=== PATIENT | female | born 1985 | race Caucasian/White ===

== ENCOUNTER → 2016-08-15 | Outpatient (REF) | payer OTHER, MEDICAID ==
[2016-08-15 12:28] LABS: FREE T4 1.05 NG/DL (0.76-1.46)
== END ==
LOC: M SFHCCLAY 08:38
PROVIDERS: ATTEND Family Medicine
DX: E03.9 Hypothyroidism, unspecified (principal)

== ENCOUNTER → 2017-01-01 | Outpatient (REF) | payer OTHER, MEDICAID ==
[2017-01-01 18:00] LABS: ALBUMIN 3.9 GM/DL (3.2-5.2); ALBUMIN/GLOBULIN RATIO 1.18 (1.00-1.93); ALKALINE PHOSPHATASE 58 U/L (45-117); ALT/SGPT 23 U/L (12-78); ANION GAP 9 MEQ/L (8-16); AST/SGOT 18 U/L (15-37); BILIRUBIN,TOTAL 0.5 MG/DL (0.2-1.0); BLOOD UREA NITROGEN 6 MG/DL (7-18); CALCIUM LEVEL 8.8 MG/DL (8.5-10.1); CARBON DIOXIDE LEVEL 25 MEQ/L (21-32); CHLORIDE LEVEL 107 MEQ/L (98-107); CHOLESTEROL LEVEL 135 MG/DL (<200); CREATININE FOR GFR 0.62 MG/DL (0.55-1.02); FREE T4 1.07 NG/DL (0.76-1.46); GLOMERULAR FILTRATION RATE > 60.0 (>60); GLUCOSE, FASTING 86 MG/DL (70-105); POTASSIUM SERUM 4.3 MEQ/L (3.5-5.1); SODIUM LEVEL 141 MEQ/L (136-145); TOTAL PROTEIN 7.2 GM/DL (6.4-8.2); TRIGLYCERIDES LEVEL 68 MG/DL (<150)
== END ==
LOC: M SFHCCLAY 10:07
PROVIDERS: ATTEND Family Medicine
DX: Z00.00 Encounter for general adult medical examination without abnormal findings (principal); E03.9 Hypothyroidism, unspecified

== ENCOUNTER → 2017-03-04 | Outpatient (REF) | payer OTHER, MEDICAID | LOC: M SFHCCLAY 10:14 | PROVIDERS: ATTEND Family Medicine | DX: Z01.419 Encounter for gynecological examination (general) (routine) without abnormal findings (principal) ==

== ENCOUNTER → 2017-08-20 | Outpatient (REF) | payer OTHER ==
[2017-08-21 12:13] LABS: HEPATITIS B SURFACE ANTIBODY POSITIVE (POSITIVE)
[2017-08-21 12:23] LABS: HEPATITIS B SURFACE ANTIGEN NEGATIVE (NEGATIVE)
[2017-08-21 12:51] LABS: HEPATITIS C VIRUS ABY INDEX < 0.0 INDEX (<0.8)
[2017-08-21 12:52] LABS: HIV 1&2 SCREEN CENTAUR NEGATIVE (NEGATIVE)
[2017-08-21 13:10] LABS: CHLAMYDIA DNA AMPLIFICATION NEGATIVE (NEGATIVE); GC DNA AMPLIFICATION NEGATIVE (NEGATIVE)
== END ==
LOC: M SFHCCLAY 15:19
DX: Z11.9 Encounter for screening for infectious and parasitic diseases, unspecified (principal)

== ENCOUNTER → 2017-10-09 | Outpatient (REF) | payer OTHER ==
[2017-10-09 12:00] LABS: APPEARANCE, URINE CLEAR (CLEAR); BACTERIA, URINE AUTO NEGATIVE (NEGATIVE); BILIRUBIN, URINE AUTO NEGATIVE (NEGATIVE); BLOOD, URINE BLOOD NEGATIVE (NEGATIVE); COLOR, URINE YELLOW (YELLOW); GLUCOSE, URINE (UA) AUTO NEGATIVE (NEGATIVE); KETONE, URINE AUTO NEGATIVE (NEGATIVE); LEUKOCYTE ESTERASE, URINE AUTO NEGATIVE (NEGATIVE); NITRITE, URINE AUTO NEGATIVE (NEGATIVE); PROTEIN, URINE AUTO NEGATIVE (NEGATIVE); RBC, URINE AUTO 0 /HPF (0-3); SQUAMOUS EPITHELIAL CELL UR AU 0 /HPF (0-6); UROBILINOGEN, URINE AUTO 0.2 mg/dL (0.0-2.0); WBC, URINE AUTO 0 /HPF (0-3)
[2017-10-09 12:03] LABS: HEPATITIS B SURFACE ANTIBODY POSITIVE (POSITIVE)
[2017-10-09 12:13] LABS: HEPATITIS B SURFACE ANTIGEN NEGATIVE (NEGATIVE)
[2017-10-09 12:41] LABS: HEPATITIS C VIRUS ABY INDEX 0.1 INDEX (<0.8)
[2017-10-09 12:41] LABS: HIV 1&2 SCREEN CENTAUR NEGATIVE (NEGATIVE)
[2017-10-09 13:28] LABS: CHLAMYDIA DNA AMPLIFICATION NEGATIVE (NEGATIVE); GC DNA AMPLIFICATION NEGATIVE (NEGATIVE)
== END ==
LOC: M SFHCCLAY 07:40
DX: Z11.9 Encounter for screening for infectious and parasitic diseases, unspecified (principal)

== ENCOUNTER → 2017-10-10 | Outpatient (REF) | payer OTHER | LOC: M SFHCCLAY 12:51 | DX: Z11.9 Encounter for screening for infectious and parasitic diseases, unspecified (principal) ==

== ENCOUNTER → 2018-11-26 | Outpatient (REF) | payer OTHER | LOC: M LAB REF 13:37 | PROVIDERS: ATTEND Nurse Practitioner Adult Health | DX: R19.7 Diarrhea, unspecified (principal) ==

== ENCOUNTER 2019-11-02 13:08 | Emergency (ER) | payer OTHER ==
[~2019-11-02] VITALS: Ht 160 cm; Wt 59.1 kg
[2019-11-02] MEDS ORDERED: vitamin d (13:15)
[2019-11-02] MEDS ORDERED: LEVO125T4 (13:15)
[2019-11-02] MEDS ORDERED: otc iron (13:15)
[2019-11-02] MEDS ORDERED: methylPREDNISolone 125MG 2ML VIAL IM ONE (13:30)
[2019-11-02] MEDS ORDERED: LIDOCAINE 5% (LIDODERM) PATCH TD ONE (13:30)
[2019-11-02] MEDS ORDERED: KETOROLAC 60MG 2ML VIAL IM ONE (13:30)
[2019-11-02] MEDS ORDERED: CYCL-707 PO (15:29)
[2019-11-02] MEDS ORDERED: LIDO5DIS41 TOP (15:29)
[2019-11-02 15:40] VITALS: BP 119/72
[2019-11-03] MEDS ORDERED: **NOTE PATIENT COMMENT** MISC XX ONE (01:00)
== END 2019-11-02 15:57 | disposition home or self-care (01) ==
LOC: M ED 13:08
DX: S39.92XA Unspecified injury of lower back, initial encounter (principal); X50.9XXA Other and unspecified overexertion or strenuous movements or postures, initial encounter; Y92.89 Other specified places as the place of occurrence of the external cause; Y99.0 Civilian activity done for income or pay; E03.9 Hypothyroidism, unspecified; Z79.890 Hormone replacement therapy; F17.210 Nicotine dependence, cigarettes, uncomplicated
CPT/HCPCS: 96372; 99283; J1885; J2930

== ENCOUNTER → 2020-06-03 | Outpatient (CLI) | payer OTHER ==
[~2020-06-03] MED LIST: CYCL-707 PO; LEVO125T4; LIDO5DIS41 TOP; otc iron; vitamin d
[2020-06-03 13:20] LABS: HEMATOCRIT 43.1 % (36.0-47.0); MEAN CORPUSCULAR HEMOGLOBIN 30.5 pg (27.0-33.0); MEAN CORPUSCULAR HGB CONC 32.5 g/dl (32.0-36.5); MEAN CORPUSCULAR VOLUME 93.9 fl (80.0-96.0); PLATELET COUNT, AUTOMATED 348 10^3/uL (150-450); RED BLOOD COUNT 4.59 10^6/uL (4.00-5.40); WHITE BLOOD COUNT 8.6 10^3/uL (4.0-10.0)
[2020-06-03 14:06] LABS: ERYTHROCYTE SEDIMENTATION RATE 9 mm/hr (0-20)
== END ==
LOC: M LAB 12:00
PROVIDERS: ATTEND Internal Medicine Gastroenterology
DX: K52.89 Other specified noninfective gastroenteritis and colitis (principal); R10.13 Epigastric pain; R11.0 Nausea; R19.5 Other fecal abnormalities

== ENCOUNTER → 2020-11-02 | Outpatient (CLI) | payer OTHER ==
[2020-11-02 19:25] LABS: BASO % 0.3 % (0.0-1.0); EOS # 0.2 10^3/uL (0.0-0.5); EOS % 1.7 % (0.0-3.0); HEMATOCRIT 39.2 % (36.0-47.0); HEMOGLOBIN 13.2 g/dl (12.0-15.5); LYMPH # 3.3 10^3/uL (1.5-5.0); LYMPH % 38.5 % (24.0-44.0); MEAN CORPUSCULAR HGB CONC 33.7 g/dl (32.0-36.5); MONO # 0.8 10^3/uL (0.0-0.8); MONO % 8.7 % (2.0-8.0); NEUTROPHILS # 4.4 10^3/uL (1.5-8.5); NEUTROPHILS % 50.5 % (36.0-66.0); PLATELET COUNT, AUTOMATED 306 10^3/uL (150-450); RED BLOOD COUNT 4.26 10^6/uL (4.00-5.40); WHITE BLOOD COUNT 8.7 10^3/uL (4.0-10.0)
[2020-11-02 19:47] LABS: BLOOD UREA NITROGEN 8 MG/DL (7-18); CALCIUM LEVEL 9.1 MG/DL (8.5-10.1); CARBON DIOXIDE LEVEL 30 MEQ/L (21-32); CHLORIDE LEVEL 107 MEQ/L (98-107); CREATININE FOR GFR 0.88 MG/DL (0.55-1.30); GLOMERULAR FILTRATION RATE > 60.0 (>60); GLUCOSE, FASTING 76 MG/DL (70-100); SODIUM LEVEL 140 MEQ/L (136-145)
[2020-11-02 19:48] LABS: ALBUMIN 4.2 GM/DL (3.2-5.2); ALT/SGPT 43 U/L (12-78); BILIRUBIN,TOTAL 0.2 MG/DL (0.2-1.0); FREE T4 0.93 NG/DL (0.76-1.46); MAGNESIUM LEVEL 2.3 MG/DL (1.8-2.4); TOTAL PROTEIN 7.8 GM/DL (6.4-8.2)
== END ==
LOC: M LAB 18:33
PROVIDERS: ATTEND Nurse Practitioner Family
DX: R00.2 Palpitations (principal); E03.9 Hypothyroidism, unspecified; E55.9 Vitamin D deficiency, unspecified; N94.6 Dysmenorrhea, unspecified

== ENCOUNTER → 2020-12-16 | Outpatient (REF) | LOC: M EMP 09:22 | PROVIDERS: ATTEND Family Medicine | DX: Z20.822 Contact with and (suspected) exposure to COVID-19 (principal) ==

== ENCOUNTER 2021-01-28 13:09 | Emergency (ER) | payer BC, OTHER ==
[~2021-01-28] VITALS: Ht 162.6 cm; Wt 63.9 kg
[2021-01-28 13:09] VITALS: BP 126/73
--- OUTSIDE RECORDS SUMMARY | 2021-01-28 13:16 | CCD ---
Author Author [facility] Organization [facility] Address Unknown Phone Unavailable Care Team Providers Care Electroneurodiagnostic Technologist Name Role Phone [place], L Bambi COTTON CLASSER Unavailable Unavailable Dylan, L Bambi COTTON CLASSER Unavailable Unavailable Dylan, L Bambi COTTON CLASSER Unavailable Unavailable Dylan, L Bambi COTTON CLASSER Unavailable Unavailable [place], L Bambi COTTON CLASSER Unavailable Unavailable [place], L Bambi COTTON CLASSER Unavailable Unavailable [place], L Bambi COTTON CLASSER Unavailable Unavailable Dylan, L Bambi COTTON CLASSER Unavailable Unavailable [place], L Bambi COTTON CLASSER Unavailable Unavailable Dylan, L Bambi COTTON CLASSER Unavailable Unavailable Dylan, L Bambi COTTON CLASSER Unavailable Unavailable Dylan, L Bambi COTTON CLASSER Unavailable Unavailable Dylan, L Bambi COTTON CLASSER Unavailable Unavailable Dylan, L Bambi COTTON CLASSER Unavailable Unavailable [place], L Bambi COTTON CLASSER Unavailable Unavailable [place], L Bambi COTTON CLASSER Unavailable Unavailable Dylan, L Bambi COTTON CLASSER Unavailable Unavailable [place], L Bambi COTTON CLASSER Unavailable Unavailable [place], L Bambi COTTON CLASSER Unavailable Unavailable Dylan, L Bambi COTTON CLASSER Unavailable Unavailable [place], L Bambi COTTON CLASSER Unavailable Unavailable Dylan, L Bambi COTTON CLASSER Unavailable Unavailable Dylan, L Bambi COTTON CLASSER Unavailable Unavailable Dylan, L Bambi COTTON CLASSER Unavailable Unavailable [place], L Bambi COTTON CLASSER Unavailable Unavailable Dylan, L Bambi COTTON CLASSER Unavailable Unavailable [place], L Bambi COTTON CLASSER Unavailable Unavailable Dylan, L Bambi COTTON CLASSER Unavailable Unavailable [place], L Bambi COTTON CLASSER Unavailable Unavailable [place], L Bambi COTTON CLASSER Unavailable Unavailable Dylan, L Bambi COTTON CLASSER Unavailable Unavailable [place], L Bambi COTTON CLASSER Unavailable Unavailable [place], L Bambi COTTON CLASSER Unavailable Unavailable [place], L Bambi COTTON CLASSER Unavailable Unavailable Dylan, L Bambi COTTON CLASSER Unavailable Unavailable [place], L Bambi COTTON CLASSER Unavailable Unavailable Dylan, L Bambi COTTON CLASSER Unavailable Unavailable [place], L Bambi COTTON CLASSER Unavailable Unavailable Dylan, L Bambi COTTON CLASSER Unavailable Unavailable Gaetano CALHOUN MD Unavailable Unavailable Gaetano CALHOUN MD Unavailable Unavailable Gaetano CALHOUN MD Unavailable Unavailable Gaetano CALHOUN MD Unavailable Unavailable Gaetano CALHOUN MD Unavailable Unavailable Gaetano CALHOUN MD Unavailable Unavailable Gaetano CALHOUN MD Unavailable Unavailable Gaetano CALHOUN MD Unavailable Unavailable ADE F DARRELL SUNG Unavailable Unavailable Gaetano CALHOUN MD Unavailable Unavailable Gaetano CALHOUN MD Unavailable Unavailable Gaetano CALHOUN MD Unavailable Unavailable Gaetano CALHOUN MD Unavailable Unavailable ADE F DARRELL SUNG Unavailable Unavailable ADE F DARRELL SUNG Unavailable Unavailable ADE F DARRELL SUNG Unavailable Unavailable ADE F DARRELL SUNG Unavailable Unavailable ADE F DARRELL SUNG Unavailable Unavailable Gaetano CALHOUN MD Unavailable Unavailable Gaetano CALHOUN MD Unavailable Unavailable ADE F DARRELL SUNG Unavailable Unavailable ADE F DARRELL SUNG Unavailable Unavailable ADE F DARRELL SUNG Unavailable Unavailable ADE F DARRELL SUNG Unavailable Unavailable ADE F DARRELL SUNG Unavailable Unavailable ADE F DARRELL SUNG Unavailable Unavailable ADE F DARRELL SUNG Unavailable Unavailable ADE F DARRELL SUNG Unavailable Unavailable ADE F DARRELL SUNG Unavailable Unavailable ADE F DARRELL SUNG Unavailable Unavailable ADE F DARRELL SUNG Unavailable Unavailable ADE F DARRELL SUNG Unavailable Unavailable ADE F DARRELL SUNG Unavailable Unavailable ADE F DARRELL SUNG Unavailable Unavailable ADE F DARRELL SUNG Unavailable Unavailable Gaetano CALHOUN MD Unavailable Unavailable ADE F DARRELL SUNG Unavailable Unavailable ADE F DARRELL SUNG Unavailable Unavailable Gaetano CALHOUN MD Unavailable Unavailable ADE F DARRELL SUNG Unavailable Unavailable ADE F DARRELL SUNG Unavailable Unavailable Gaetano CALHOUN MD Unavailable Unavailable Gaetano CALHOUN MD Unavailable Unavailable ADE F DARRELL SUNG Unavailable Unavailable ADE F DARRELL SUNG Unavailable Unavailable ADE F DARRELL SUNG Unavailable Unavailable ADE F DARRELL SUNG Unavailable Unavailable ADE F DARRELL SUNG Unavailable Unavailable ADE F DARRELL SUNG Unavailable Unavailable ADE F DARRELL SUNG Unavailable Unavailable ADE F DARRELL SUNG Unavailable Unavailable ADE F DARRELL SUNG Unavailable Unavailable ADE F DARRELL SUNG Unavailable Unavailable ADE F DARRELL SUNG Unavailable Unavailable ADE F DARRELL SUNG Unavailable Unavailable ADE F DARRELL SUNG Unavailable Unavailable ADE F DARRELL SUNG Unavailable Unavailable ADE F DARRELL SUNG Unavailable Unavailable ADE F DARRELL SUNG Unavailable Unavailable ADE F DARRELL SUNG Unavailable Unavailable ADE F DARRELL SUNG Unavailable Unavailable ADE F DARRELL SUNG Unavailable Unavailable ADE F DARRELL SUNG Unavailable Unavailable ADE F DARRELL SUNG Unavailable Unavailable ADE F DARRELL SUNG Unavailable Unavailable ADE F DARRELL SUNG Unavailable Unavailable Gaetano CALHOUN MD Unavailable Unavailable ADE F DARRELL SUNG Unavailable Unavailable ADE F DARRELL SUNG Unavailable Unavailable Gaetano CALHOUN MD Unavailable Unavailable ADE F DARRELL SUNG Unavailable Unavailable ADE F DARRELL SUNG Unavailable Unavailable Gaetano CALHOUN MD Unavailable Unavailable Gaetano CALHOUN MD Unavailable Unavailable Gaetano CALHOUN MD Unavailable Unavailable Gaetano CALHOUN MD Unavailable Unavailable Gaetano CALHOUN MD Unavailable Unavailable Gaetano CALHOUN MD Unavailable Unavailable Gaetano CALHOUN MD Unavailable Unavailable Gaetano CALHOUN MD Unavailable Unavailable Gaetano CALHOUN MD Unavailable Unavailable Gaetano CALHOUN MD Unavailable Unavailable Gaetano CALHOUN MD Unavailable Unavailable Gaetano CALHOUN MD Unavailable Unavailable Gaetano CALHOUN MD Unavailable Unavailable Gaetano CALHOUN MD Unavailable Unavailable Gaetano CALHOUN MD Unavailable Unavailable Gaetano CALHOUN MD Unavailable Unavailable Gaetano CALHOUN MD Unavailable Unavailable SYMENOW, G CHRISTOPHER PA Unavailable Unavailable SYMENOW, G CHRISTOPHER PA Unavailable Unavailable SYMENOW, G CHRISTOPHER PA Unavailable Unavailable SYMENOW, G CHRISTOPHER PA Unavailable Unavailable SYMENOW, G CHRISTOPHER PA Unavailable Unavailable SYMENOW, G CHRISTOPHER PA Unavailable Unavailable SYMENOW, G CHRISTOPHER PA Unavailable Unavailable SYMENOW, G CHRISTOPHER PA Unavailable Unavailable SYMENOW, G CHRISTOPHER PA Unavailable Unavailable SYMENOW, G CHRISTOPHER PA Unavailable Unavailable SYMENOW, G CHRISTOPHER PA Unavailable Unavailable SYMENOW, G CHRISTOPHER PA Unavailable Unavailable SYMENOW, G CHRISTOPHER PA Unavailable Unavailable SYMENOW, G CHRISTOPHER PA Unavailable Unavailable SYMENOW, G CHRISTOPHER PA Unavailable Unavailable SYMENOW, G CHRISTOPHER PA Unavailable Unavailable Rydberg, Cindy PA Unavailable Unavailable Rydberg, Cindy PA Unavailable Unavailable Rydberg, Cindy PA Unavailable Unavailable Rydberg, Cindy PA Unavailable Unavailable Rydberg, Cindy PA Unavailable Unavailable Rydberg, Cindy PA Unavailable Unavailable Rydberg, Cindy PA Unavailable Unavailable Rydberg, Cindy PA Unavailable Unavailable Rydberg, Cindy PA Unavailable Unavailable Rydberg, Cindy PA Unavailable Unavailable Rydberg, Cindy PA Unavailable Unavailable Rydberg, Cindy PA Unavailable Unavailable Rydberg, Cindy PA Unavailable Unavailable Rydberg, Cindy PA Unavailable Unavailable Rydberg, Cindy PA Unavailable Unavailable Rydberg, Cindy PA Unavailable Unavailable Rydberg, Cindy PA Unavailable Unavailable Rydberg, Cindy PA Unavailable Unavailable Rydberg, Cindy PA Unavailable Unavailable Rydberg, Cindy PA Unavailable Unavailable Rydberg, Cindy PA Unavailable Unavailable Rydberg, Cindy PA Unavailable Unavailable Rydberg, Cindy PA Unavailable Unavailable Bertrand LEÓN MD Unavailable Unavailable Bertrand LEÓN MD Unavailable Unavailable Bertrand LEÓN MD Unavailable Unavailable Bertrand LEÓN MD Unavailable Unavailable Bertrand LEÓN MD Unavailable Unavailable Bertrand LEÓN MD Unavailable Unavailable Bertrand LEÓN MD Unavailable Unavailable Bertrand LEÓN MD Unavailable Unavailable Bertrand LEÓN MD Unavailable Unavailable Bertrand LEÓN MD Unavailable Unavailable Bertrand LEÓN MD Unavailable Unavailable Bertrand LEÓN MD Unavailable Unavailable Bertrand LEÓN MD Unavailable Unavailable Bertrand LEÓN MD Unavailable Unavailable Bertrand LEÓN MD Unavailable Unavailable Bertrand LEÓN MD Unavailable Unavailable Bertrand LEÓN MD Unavailable Unavailable Bertrand LEÓN MD Unavailable Unavailable Bertrand LEÓN MD Unavailable Unavailable Bertrand LEÓN MD Unavailable Unavailable Bertrand LEÓN MD Unavailable Unavailable Bertrand LEÓN MD Unavailable Unavailable Bertrand LEÓN MD Unavailable Unavailable Bertrand LEÓN MD Unavailable Unavailable Bertrand LEÓN MD Unavailable Unavailable Bertrand LEÓN MD Unavailable Unavailable Bertrand LEÓN MD Unavailable Unavailable Bertrand LEÓN MD Unavailable Unavailable Bertrand LEÓN MD Unavailable Unavailable Bertrand LEÓN MD Unavailable Unavailable Bertrand LEÓN MD Unavailable Unavailable Bertrand LEÓN MD Unavailable Unavailable Bertrand LEÓN MD Unavailable Unavailable Bertrand LEÓN MD Unavailable Unavailable HAHER, R KARINA MD Unavailable Unavailable HAHER R KARINA SUNG Unavailable Unavailable HAHER, R KARINA SUNG Unavailable Unavailable HAHER, R KARINA SUNG Unavailable Unavailable HAHER, R KARINA SUNG Unavailable Unavailable HAHER, R KARINA SUNG Unavailable Unavailable HAHER, R KARINA SUNG Unavailable Unavailable HAHER, R KARINA SUNG Unavailable Unavailable HAHER, R KARINA SUNG Unavailable Unavailable HAHER, R KARINA SUNG Unavailable Unavailable HAHER, R KARINA SUNG Unavailable Unavailable HAHER, R KARINA SUNG Unavailable Unavailable HAHER, R KARINA SUNG Unavailable Unavailable HAHER, R KARINA SUNG Unavailable Unavailable HAHER, R KARINA SUNG Unavailable Unavailable HAHER, R KARINA SUNG Unavailable Unavailable HAHER, R KARINA SUNG Unavailable Unavailable HAHER, R KARINA SUNG Unavailable Unavailable HAHER, R KARINA SUNG Unavailable Unavailable HAHER, R KARINA SUNG Unavailable Unavailable HAHER, R KARINA SUNG Unavailable Unavailable HAHER, R KARINA SUNG Unavailable Unavailable HAHER, R KARINA SUNG Unavailable Unavailable HAHER, R KARINA SUNG Unavailable Unavailable HAHER, R KARINA SUNG Unavailable Unavailable HAHER, R KARINA SUNG Unavailable Unavailable HAHER, R KARINA SUNG Unavailable Unavailable HAHER, R KARINA SUNG Unavailable Unavailable HAHER, R KARINA SUNG Unavailable Unavailable HAHER, R KARINA SUNG Unavailable Unavailable HAHER, R KARINA SUNG Unavailable Unavailable HAHER, R KARINA SUNG Unavailable Unavailable HAHER, R KARINA SUNG Unavailable Unavailable HAHER, R KARINA SUNG Unavailable Unavailable HAHER, R KARINA SUNG Unavailable Unavailable HAHER, R KARINA SUNG Unavailable Unavailable HAHER, R KARINA SUNG Unavailable Unavailable Justin Arroyo MD Unavailable Unavailable NawafJustin aldrich MD Unavailable Unavailable Justin Arroyo MD Unavailable Unavailable Justin Arroyo MD Unavailable Unavailable Justin Arroyo MD Unavailable Unavailable Justin Arroyo MD Unavailable Unavailable Justin Arroyo MD Unavailable Unavailable Justin Arroyo MD Unavailable Unavailable Justin Arroyo MD Unavailable Unavailable Justin Arroyo MD Unavailable Unavailable Justin Arroyo MD Unavailable Unavailable NawafJustin aldrich MD Unavailable Unavailable Justin Arroyo MD Unavailable Unavailable Justin Arroyo MD Unavailable Unavailable Justin Arroyo MD Unavailable Unavailable Justin Arroyo MD Unavailable Unavailable Justin Arroyo MD Unavailable Unavailable Justin Arroyo MD Unavailable Unavailable Justin Arroyo MD Unavailable Unavailable Justin Arroyo MD Unavailable Unavailable Justin Arroyo MD Unavailable Unavailable Justin Arroyo MD Unavailable Unavailable Justin Arroyo MD Unavailable Unavailable Justin Arroyo MD Unavailable Unavailable Justin Arroyo MD Unavailable Unavailable NawafJustin aldrich MD Unavailable Unavailable NawafJustin aldrich MD Unavailable Unavailable Nawaf, Justin Paez MD Unavailable Unavailable Nawaf, Justin Paez MD Unavailable Unavailable Nawaf, Justin Paez MD Unavailable Unavailable Nawaf, Justin Paez MD Unavailable Unavailable Nawaf, Justin Paez MD Unavailable Unavailable Nawaf, Justin Paez MD Unavailable Unavailable Nawaf, Justin Paez MD Unavailable Unavailable Nawaf, Justin Paez MD Unavailable Unavailable Nawaf, Justin Paez MD Unavailable Unavailable Nawaf, Justin Paez MD Unavailable Unavailable Nawaf, Justin Paez MD Unavailable Unavailable Nawaf, Justin Paez MD Unavailable Unavailable Nawaf, Justin Paez MD Unavailable Unavailable Nawaf, Justin Paez MD Unavailable Unavailable Nawaf, Justin Paez MD Unavailable Unavailable Nawaf, Justin Paez MD Unavailable Unavailable Nawaf, Justin Paez MD Unavailable Unavailable Nawaf, Justin Paez MD Unavailable Unavailable Nawaf, G Philippe SUNG Unavailable Unavailable Nawaf, Justin Paez MD Unavailable Unavailable Nawaf, G Philippe SUNG Unavailable Unavailable Nawaf, G Philippe SUNG Unavailable Unavailable Nawaf, Justin Paez MD Unavailable Unavailable Nawaf, Justin Paez MD Unavailable Unavailable Nawaf, Justin Paez MD Unavailable Unavailable Nawaf, Justin Paez MD Unavailable Unavailable Nawaf, Justin Paez MD Unavailable Unavailable Nawaf, Justin Paez MD Unavailable Unavailable Nawaf, Justin Paez MD Unavailable Unavailable Nawaf, Justin Paez MD Unavailable Unavailable Nawaf, Justin Paez MD Unavailable Unavailable Nawaf, Justin Paez MD Unavailable Unavailable Nawaf, Justin Paez MD Unavailable Unavailable Nawaf, Justin Paez MD Unavailable Unavailable Nawaf, Justin Paez MD Unavailable Unavailable Nawaf, Justin Paez MD Unavailable Unavailable Nawaf, Justin Paez MD Unavailable Unavailable Nawaf, Justin Paez MD Unavailable Unavailable Nawaf, Justin Paez MD Unavailable Unavailable Nawaf, Justin Paez MD Unavailable Unavailable Nawaf, Justin Paez MD Unavailable Unavailable Nawaf, Justin Paez MD Unavailable Unavailable Nawaf, Justin Paez MD Unavailable Unavailable Nawaf, Justin Paez MD Unavailable Unavailable Nawaf, Justin Paez MD Unavailable Unavailable Nawaf, Justin Paez MD Unavailable Unavailable Nawaf, Justin Paez MD Unavailable Unavailable Nawaf, Justin Paez MD Unavailable Unavailable Nawaf, Justin Paez MD Unavailable Unavailable Nawaf, Justin Paez MD Unavailable Unavailable Nawaf, Justin Paez MD Unavailable Unavailable Nawaf, Justin Paez MD Unavailable Unavailable Nawaf, Justin Paez MD Unavailable Unavailable Nawaf, Justin Paez MD Unavailable Unavailable Nawaf, Justin Paez MD Unavailable Unavailable Nawaf, Justin Paez MD Unavailable Unavailable Nawaf, Justin Paez MD Unavailable Unavailable Nawaf, Justin Paez MD Unavailable Unavailable Nawaf, Justin Paez MD Unavailable Unavailable Nawaf, Justin Paez MD Unavailable Unavailable Nawaf, Justin Paez MD Unavailable Unavailable Nawaf, Justin Paez MD Unavailable Unavailable Nawaf, Justin Paez MD Unavailable Unavailable NawafJustin MD Unavailable Unavailable Nawaf, Justin Paez MD Unavailable Unavailable Nawaf, Justin Paez MD Unavailable Unavailable Nawaf, Justin Paez MD Unavailable Unavailable Nawaf, Justin Paez MD Unavailable Unavailable Nawaf, Justin Paez MD Unavailable Unavailable Nawaf, Justin Paez MD Unavailable Unavailable Nawaf, Justin Paez MD Unavailable Unavailable Nawaf, Justin Paez MD Unavailable Unavailable Nawaf, Justin Paez MD Unavailable Unavailable Nawaf, Justin Paez MD Unavailable Unavailable Nawaf, Justin Paez MD Unavailable Unavailable Nawaf, Justin Paez MD Unavailable Unavailable Nawaf, Justin Paez MD Unavailable Unavailable Anwaf, Justin Paez MD Unavailable Unavailable Nawaf, Justin Paez MD Unavailable Unavailable Nawaf, Justin Paez MD Unavailable Unavailable Nawaf, Justin Paez MD Unavailable Unavailable Nawaf, Justin Paez MD Unavailable Unavailable Nawaf, Justin Paez MD Unavailable Unavailable Nawaf, Justin Paez MD Unavailable Unavailable Nawaf, Justin Paez MD Unavailable Unavailable Nawaf, Justin Paez MD Unavailable Unavailable Nawaf, Justin Paez MD Unavailable Unavailable Nawaf, Justin Paez MD Unavailable Unavailable Nawaf, Justin Paez MD Unavailable Unavailable Nawaf, Justin Paez MD Unavailable Unavailable Nawaf, Justin Paez MD Unavailable Unavailable Nawaf, Justin Paez MD Unavailable Unavailable Nawaf, Justin Paez MD Unavailable Unavailable Nawaf, Justin Paez MD Unavailable Unavailable Nawaf, Justin Paez MD Unavailable Unavailable Nawaf, Justin Paez MD Unavailable Unavailable Nawaf, Justin Paez MD Unavailable Unavailable Nawaf, Justin Paez MD Unavailable Unavailable Nawaf, Justin Paez MD Unavailable Unavailable Nawaf, Justin Paez MD Unavailable Unavailable Nawaf, Justin Paez MD Unavailable Unavailable Nawaf, Justin Paez MD Unavailable Unavailable Nawaf, Justin Paez MD Unavailable Unavailable MARINO, W JAZMYN PA Unavailable Unavailable MARINO, W JAZMYN PA Unavailable Unavailable MARINO, W JAZMYN PA Unavailable Unavailable MARINO, W JAZMYN PA Unavailable Unavailable MARINO, W JAZMYN PA Unavailable Unavailable MARINO, W JAZMYN PA Unavailable Unavailable MARINO, W JAZMYN PA Unavailable Unavailable MARINO, W JAZMYN PA Unavailable Unavailable MARINO, W JAZMYN PA Unavailable Unavailable MARINO, W JAZMYN PA Unavailable Unavailable MARINO, W JAZMYN PA Unavailable Unavailable MARINO, W JAZMYN PA Unavailable Unavailable MARINO, W JAZMYN PA Unavailable Unavailable MARINO, W JAZMYN PA Unavailable Unavailable MARINO, W JAZMYN PA Unavailable Unavailable MARINO, W JAZMYN PA Unavailable Unavailable MARINO, W JAZMYN PA Unavailable Unavailable MARINO, W JAZMYN PA Unavailable Unavailable MARINO, W JAZMYN PA Unavailable Unavailable MARINO, W JAZMYN PA Unavailable Unavailable MARINO, W JAZMYN PA Unavailable Unavailable MARINO, W JAZMYN PA Unavailable Unavailable MARINO, W JAZMYN PA Unavailable Unavailable MARINO, W JAZMYN PA Unavailable Unavailable MARINO, W JAZMYN PA Unavailable Unavailable MARINO, W JAZMYN PA Unavailable Unavailable MARINO, W JAZMYN PA Unavailable Unavailable MARINO, W JAZMYN PA Unavailable Unavailable MARINO, W JAZMYN PA Unavailable Unavailable MARINO, W JAZMYN PA Unavailable Unavailable MARINO, W JAZMYN PA Unavailable Unavailable MARINO, W JAZMYN PA Unavailable Unavailable MARINO, W JAZMYN PA Unavailable Unavailable MARINO, W JAZMYN PA Unavailable Unavailable MARINO, W JAZMYN PA Unavailable Unavailable MARINO, W JAZMYN PA Unavailable Unavailable MARINO, W JAZMYN PA Unavailable Unavailable MARINO, W JAZMYN PA Unavailable Unavailable MARINO, W JAZMYN PA Unavailable Unavailable MARINO, W JAZMYN PA Unavailable Unavailable MARINO, W JAZMYN PA Unavailable Unavailable MARINO, W JAZMYN PA Unavailable Unavailable MARINO, W JAZMYN PA Unavailable Unavailable MARINO, W JAZMYN PA Unavailable Unavailable Maring, Peng PA Unavailable Unavailable Maring, Peng PA Unavailable Unavailable Maring, Peng PA Unavailable Unavailable Maring, Peng PA Unavailable Unavailable Maring, Peng PA Unavailable Unavailable Maring, Peng PA Unavailable Unavailable Maring, Peng PA Unavailable Unavailable Maring, Peng PA Unavailable Unavailable Maring, Peng PA Unavailable Unavailable Maring, Peng PA Unavailable Unavailable Maring, Peng PA Unavailable Unavailable Maring, Peng PA Unavailable Unavailable Maring, Peng PA Unavailable Unavailable Maring, Peng PA Unavailable Unavailable Maring, Peng PA Unavailable Unavailable Maring, Peng PA Unavailable Unavailable GLEASMAN FAWN, L FLORENCE TAPPER HAND Unavailable Unavailable GLEASMAN FAWN, L FLORENCE TAPPER HAND Unavailable Unavailable GLEASMAN FAWN, L FLORENCE TAPPER HAND Unavailable Unavailable GLEASMAN FAWN, L FLORENCE TAPPER HAND Unavailable Unavailable GLEASMAN FAWN, L FLORENCE TAPPER HAND Unavailable Unavailable GLEASMAN FAWN, L FLORENCE TAPPER HAND Unavailable Unavailable GLEASMAN FAWN, L FLORENCE TAPPER HAND Unavailable Unavailable GLEASMAN FAWN, L FLORENCE TAPPER HAND Unavailable Unavailable GLEASMAN FAWN, L FLORENCE TAPPER HAND Unavailable Unavailable GLEASMAN FAWN, L FLORENCE TAPPER HAND Unavailable Unavailable GLEASMAN FAWN, L FLORENCE TAPPER HAND Unavailable Unavailable GLEASMAN FAWN, L FLORENCE TAPPER HAND Unavailable Unavailable GLEASMAN FAWN, L FLORENCE TAPPER HAND Unavailable Unavailable GLEASMAN FAWN, L FLORENCE TAPPER HAND Unavailable Unavailable GLEASMAN FAWN, L FLORENCE TAPPER HAND Unavailable Unavailable GLEASMAN FAWN, L FLORENCE TAPPER HAND Unavailable Unavailable GLEASMAN FAWN, L FLORENCE TAPPER HAND Unavailable Unavailable GLEASMAN FAWN, L FLORENCE TAPPER HAND Unavailable Unavailable GLEASMAN FAWN, L FLORENCE TAPPER HAND Unavailable Unavailable GLEASMAN FAWN, L FLORENCE TAPPER HAND Unavailable Unavailable GLEASMAN FAWN, L FLORENCE TAPPER HAND Unavailable Unavailable GLEASMAN FAWN, L FLORENCE TAPPER HAND Unavailable Unavailable GLEASMAN FAWN, L FLORENCE TAPPER HAND Unavailable Unavailable GLEASMAN FAWN, L FLORENCE TAPPER HAND Unavailable Unavailable GLEASMAN FAWN, L FLORENCE TAPPER HAND Unavailable Unavailable GLEASMAN FAWN, L FLORENCE TAPPER HAND Unavailable Unavailable GLEASMAN FAWN, L FLORENCE TAPPER HAND Unavailable Unavailable GLEASMAN FAWN, L FLORENCE TAPPER HAND Unavailable Unavailable GLEASMAN FAWN, L FLORENCE TAPPER HAND Unavailable Unavailable GLEASMAN FAWN, L FLORENCE TAPPER HAND Unavailable Unavailable GLEASMAN FAWN, L FLORENCE TAPPER HAND Unavailable Unavailable GLEASMAN FAWN, L FLORENCE TAPPER HAND Unavailable Unavailable GLEASMAN FAWN, L FLORENCE TAPPER HAND Unavailable Unavailable GLEASMAN FAWN, L FLORENCE TAPPER HAND Unavailable Unavailable GLEASMAN FAWN, L FLORENCE TAPPER HAND Unavailable Unavailable GLEASMAN FAWN, L FLORENCE TAPPER HAND Unavailable Unavailable GLEASMAN FAWN, L FLORENCE TAPPER HAND Unavailable Unavailable GLEASMAN FAWN, L FLORENCE TAPPER HAND Unavailable Unavailable SEBASTIEN (ARON), Lacey HENRIQUEZ MD Unavailable Unavailab le SEBASTIEN (ARON), Lacey HENRIQUEZ MD Unavailable Unavailab le SEBASTIEN (ARON), Lacey HENRIQUEZ MD Unavailable Unavailab le SEBASTIEN (ARON), Lacey HENRIQUEZ MD Unavailable Unavailab le SEBASTIEN (ARON), Lacey HENRIQUEZ MD Unavailable Unavailab le SEBASTIEN (ARON), Lacey HENRIQUEZ MD Unavailable Unavailab le SEBASTIEN (ARON), Lacey HENRIQUEZ MD Unavailable Unavailab le SEBASTIEN (ARON), Lacey HENRIQUEZ MD Unavailable Unavailab le SEBASTIEN (ARON), Lacey HENRIQUEZ MD Unavailable Unavailab le SEBASTIEN (ARON), Lacey HENRIQUEZ MD Unavailable Unavailab le SEBASTIEN (ARON), Lacey HENRIQUEZ MD Unavailable Unavailab le SEBASTIEN (ARON), Lacey HENRIQUEZ MD Unavailable Unavailab le SEBASTIEN (ARON), Lacey HENRIQUEZ MD Unavailable Unavailab le SEBASTIEN (ARON), Lacey HENRIQUEZ MD Unavailable Unavailab le SEBASTIEN (ARON), Lacey HENRIQUEZ MD Unavailable Unavailab le SEBASTIEN (ARON), Lacey HENRIQUEZ MD Unavailable Unavailab le SEBASTIEN (ARON), Lacey HENRIQUEZ MD Unavailable Unavailab le SEBASTIEN (ARON), Lacey HENRIQUEZ MD Unavailable Unavailab le SEBASTIEN (ARON), Lacey HENRIQUEZ MD Unavailable Unavailab le SEBASTIEN (ARON), Lacey HENRIQUEZ MD Unavailable Unavailab le SEBASTIEN (ARON), Lacey HENRIQUEZ MD Unavailable Unavailab le SEBASTIEN (ARON), Lacey HENRIQUEZ MD Unavailable Unavailab le SEBASTIEN (ARON), Lacey HENRIQUEZ MD Unavailable Unavailab le SEBASTIEN (ARON), Lacey HENRIQUEZ MD Unavailable Unavailab le SEBASTIEN (ARON), Lacey HENRIQUEZ MD Unavailable Unavailab le SEBASTIEN (ARON), Lacey HENRIQUEZ MD Unavailable Unavailab le SEBASTIEN (ARON), Lacey HENRIQUEZ MD Unavailable Unavailab le SEBASTIEN (ARON), Lacey HENRIQUEZ MD Unavailable Unavailab le SEBASTIEN (ARON), Lacey HENRIQUEZ MD Unavailable Unavailab le SEBASTIEN (ARON), Lacey HENRIQUEZ MD Unavailable Unavailab le SEBASTIEN (ARON), Lacey HENRIQUEZ MD Unavailable Unavailab le SEBASTIEN (ARON), Lacey HENRIQUEZ MD Unavailable Unavailab le SEBASTIEN (ARON), Lacey HENRIQUEZ MD Unavailable Unavailab le SEBASTIEN (ARON), Lacey HENRIQUEZ MD Unavailable Unavailab le SEBASTIEN (ARON), Lacey HENRIQUEZ MD Unavailable Unavailab le SEBASTIEN (ARON), Lacey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 xpowNlRPMF+/TlOjAi54yg4EVhy0VUgpjOeY3eBIRAVQqZW3Tc+r/Mok18rGiyHwwH43D5GtG68efPFZ 6bohwFRgjBFzsYCWDKVj64vuV2zl0/k7e/N14Hw8K/ UI3cuz4af8RtSGdqiXW7Wl7YpdxFivHIxfb7L4kZSo7ZTaKNdfDYkatHhug2DG4kyZTq6JonvQIM71+i qwn2Y5hLIwOwC84PfjwBWn2OrSdiyFStUoGYieDZN/xsx5/D+credit control manager+q/rc/pkP53FMZOBj99uFNpAIEid5 [file] Sf8K3W/ÁNGEL/W9N97ICFkW7GXQctgK1XwLrqRlbWk8OE [file] [facility]/y7+nHOgsm5rDuwUSV/N1DrLR6jdCgciBahGR9tOoKeRZgxt2XZYkeCrbg86yYns64h71fersNUs6 [file] VoHn71rtfil68W37+jSvqQ3ebj8MEeiG7GUDnWd/Bull Wheel Worker [file] ImvmDLn/MJd0UaI1izqlHS0GN9o6ZKN6KJt8EQih1+HyEmjdJlqjTo3frRmeRGz/kGp8/Toño/+6xkEy9 [file] 9G ID Date Data Source [id number] 09/07/2020 09:30:00 AM EDT [facility] Name Value Range Interpretation Code Description Data Beatriz rce(s) Supporting Document(s) EGD-Colonoscopy [facility] YERSBk2oSfBCTeLaZMVlHagOTLnhXZmtOVMmF5A9NKzaUe8WBOnkxxCxBQEjUw9+PNLjDD6rlp7qSFVo gMy [file] application coordinator+xTl2PjIztR+MIjkYvXaLn9+hkNVlzQ2jsldVZqPvo8j2swwVKE5cJqW/MI7k+/3qVCAJo/Dv4Nk1l [file] uc/ce+VOX/ÁNGEL/YktKzjJFqSLMsNYKE1i7ibkczlY1CpvCsPYCUPxFiZj+u8FRtDgT5nKL/I29fs9nlX0 YED0DHh58cJ2CRKizVaG+vL2TFmIuLmGNWORTgE0JY rNIUseest/bv/op1X8D0O4Itzf2TFzyT6TH1+C9M2v067kQ9m8UozwWuL5xdOwriIaofITrxHc3RjrQd k1n5e3eq7BCniU8TTHSg430/MXEce1o666P1YPcDM2zaB58gbAfOvg12VxmKpwhC2EqnbJ/5eb3s0AMn R2whJDnZCy1Q5hn7CiLc9Af7VfjjgSeyuorFOmUEbz IAcyFf3TJZ/qzQC7hRgmntfCpUzjW8uX6/ZjoM6P1/i+f8NZDRSghX1Mbyxx8t/sew69WFutDOyBQGsB fZtFdsqGwSfzYk5gXat/tTVrhN8c5nkbg1Rnw74VUtCGAA/xILSMLyFwC8XYZLCaht9euDoOFA6ZXnhQ LI+TgFddfu5aDnANcutTYMl8/sxKR//g0LGHxRu5Ea 0RGrOjELK/9Av9fk3osdSf8NX9Jy+/i5/w7qxdl+h+1iygk3RZkhTxad2V8ovK5TebCJjFA3sxITrN7Z m8UmAOk4Lg2YsPmt8V17KUqyZqa0nDqhM6PGONdCD+JsTCg7X81JCMakgEJJ4gaHKAg3E3G8uwNxwZEQ 2kyRwPAzW+1rwzEfmWQsYGFBYCBB/StBjLmDaiV+zu 6hoQBHoXGsEQLQvGVmpfJb47G5dqWo6uLcOBB/ReW92qwMvWVCMaAwlKuahNDgCY1fZqfaYvwnYR6dnL XS6uWR46qyQH5Zf2DHr+9ee8TIdhWgWF4/Condon/7pzwvUIcD5PkADb/eDtAYqCNHvC7nZmLOTP0YercJZg [file] ÁNGEL+7rlhjCr3rNVWb5d7+JwbpWityvS/L7G9Hg82ltu53l0Wwk0ITrZKgUWPJJEHcr0cwnujwVznxhrBQ [file] 4pVHeEuaRorsilXC/G6/Counter Checker/ZBFy8KHlKCmDjGEF+Z6eB3HpEXMMKdAw+BEEGDhnwLlk10DgKyj6yJtqx [file] OR1MI7ApeGwX64el+K66W5877t36oR9coZtD81dAaf enXVnM+s13apgtBEe9Vnxl33hqzEYVbwXo2+oKeXD1F2s/4Spe48petFC4UHFfn3BR0TKAOLVsa4VXBf AKMg2PAr+0yoEkPNM8cjMMgRr484yzz039b3CBdlGMNzIa/OBpktcaprZQbIKdue1N2/VHVgVKqbLGOv REfzFWfniyALb5Hf8Nh5tVogp3dqEOmtD1gf0+bLH7 Z3C1yAENTgryulY/bVFhKJ6vfYmV9N55nJtP3Lj7O+0hsLwCM9RmQMepzA2Gg51Erg5Cc/qs9seyDm8E /zjIO7VK2JjDxT9hOz1hMJJ+Q5jejKn7TOSWcChJ4XNbKoJoP3C6ywWgE1m3LqiI40lst/X3b/H/gE/y d/dOwd4eYTW8vQUEe6HCrSgCBUq+BmnlSHBwDaifBr /xBhFCOuELFqArKAnfBUS4PSVtby8LQx/4jt5Lz5uvh0W2suMiK4EuY3cwogjcWIxFRC5f9eK60cZELy LCTE00TvJ3K/Zsi6FdNkg3PsuhzCeD3F5T/Bull Wheel Worker+suROuB/O3BKkMf/wwu9jzNVtYFCG5VVV87S7G/+n7i ASFooBs6hybjGBUIkB8INWSRfRk6QAntBltXJlRcRQ x294E3KlPdH2lA/wMi4kG0xsa/DVeIe+M/bjL9/d6GbOiZoKud0g7vrfYUugzvgsV9jfqLaVLRAJBnX+ X+dqmJHcWbY0JGmJMVkxypyfP9moQGUgJ49nfaiJrRur0y08mVeHtkVDC7jETuiNoFWnJ1q5ayj2KNhg tGYqwohjOe/a6cnzBXjdnMixI59+5O7+nte+TrwAwB exfLH/xISbVvx11Z9VtSpw70DJLeZfPQx2C/nvF1n9E1LpSWSLBDFxvbN9CxJ8a5x8a8zdH7fVbA1B26 lDIgydpH0TpOpXXc1dt2P542Wo1IhX/jkDXfXj7b1as7s6W1nspbekU1PKzDT7126stm4Y7MJTfu2K6A 4SZzKGf8xVl6pXy/9e45HkJMea5wtQ/4b//4V1zmvW 7Q6ZbiFrdn2rs7442/Bl32UF1qbvZc/OTQWLP9b2OqhakOAaL71mD0o8oGJKs3/2dkcDCO3etQq32UMO S3F/5I1rA4LH5Z+9/08dozNrma8U0I66QOSj1cQS0EXKM2X0k+J3p+nLA8S6fd1Aaer4h/zjkxMD3bFJ +B44S12KPs1cv0Sni+vsMQa4KXdi/FkQ0tFYihP4De KV/I+w/liaEs/sMxz87U+BE3dqf548PRgz77XuuGd1Udciuz5UJj4HSE72D+y9jAmMIbF2vpNPqHNUdc y0CMBtjQd/Gerald/+Qqb5HAgkS/1HuX9PyCcpqMoUyP3yVDd1UHKsf/Kn9hT+aiIh3K6PK2pvo9pRwes+q [file] 4cWKcWWo/plBHuNbPhVo9clol09Oc2LJvlp9tkvPhTs/5s7t/38lmjOy8zOT9FND94/Dc0Ygk+pump tender/c/ [file] [facility]/wICDnjStFv0KF5hZlfvQw/Of6FH/L62g2jzl1M01pydC9d4/VtaRGzK37yYFglGely2BnEgQkrNv [file] qmrYg8exM5/N+p+test eng/kUupRo45sBVpCdpFWPsgEZJ /fR975nIxdV5ixMMvVFa4iWmUaJBCzWMjPvOMFL/CBEcu3xkUi4mMpYMHf32Rk7SlxQoGNFxGpLgfgd0 HJ0DFGWo4c05Mz+q0ZS7EoiI7Sn78+J4YV8nulTt8cLL2V+JzE+D4/IsT1DBdUmJNHCbgdP2w4YloTZf 0yw753np/apo3v/XR673MeG6z90C0Aan1cdL/oZ89F [file] Lyc4obPHn7BpXxd09yMznzfDEEd42S2K8aJI41vM0fmPL6kvENVLtGDIViZbk4/wool supplier+tqq3HAwJsb4U9 [file] nRUBrLrY+XPojSaEVnipbMTOzmXR1GRuogqW/u [file] y+PSt0wq+business analysis consultant+XTsot7OEAp8Uk5fHhb4b0l+a63jad [file] yKPSVCnaXK9RJa5ZdFiI/yzt9h/S85AxM3oRdM/Rafael o0yjzsjY6k5elYgIm+AIo0Exh1h3sMh9VgNU86ZGyryJ1JF0o7oViHPR+H1nV4U+Cr9B4U/Senior Manager Quality Assurance/tUC+T [file] G0UTSrjtEGosGO6brXbCqmipf4WdgNzZXjKE1/credit control manager/O [file] AJEdE6gESzNSonsXqd2OPN5l05x6TE/P4qt4IqV59ShEJlvMMVRWE/4N3LE1RxBHSzwzfqnv8WXN/Print Line Tailer [file] NICOLLE+pcpuCwL24BdWZV5/d8zS6sYj89mxP5zmynSKdxVf4iOnbpwvcxLP932SdltJq5Bxwb+8NYu22Maac agtK0/7meY6xh7WKxOn3B5/sqBi13MMyU3YKck0yLoejcV6MC0+y9nAs1W1S77v8aGpHLZ3vOSWzvYIK 0+eP4eWNdwO9TimvvozsZ8TzU3Cs1shXVITG4+ [file] Ángel/NVAr/w60zPm1ugRO5cJJsz2Jwp+IqfMTKhclGtsIxd3/dAkC/KPjsN/+hAvgWoCvWw+Uqeh5ff/df [file] 0FXFsWicwPe9QFem+rtS+P48i8EarLAwP2ue1h+/Counter Checker [file] 4fAhgZQ/Toq0LAsOIlQK/a8jqcigSZFazB+JvVNinAaRMAAmVViuKRswVQQPHJRWrVgnZRAbExns+printer slotter operator [file] nnZxvK0SZU5xr0YpZT4Wh6PfyeD6ibBnAFogWHNuAuJ1GXmmIYVBFo== ID Date Data Source [id number] 08/09/2020 10:30:00 AM EDT [facility] Name Value Range Interpretation Code Description Data Ebatriz rce(s) Supporting Document(s) Follow Up [facility] HNFFJe4mDkFXIoLyUQBfItwGCWpqUZorRLRcX7C8CHumRq6TQAvyldVpZMSzKu1+MUQdSB5pjq5nESJu gMy 0pIBCuKhjmP0OzPPBxj06GKDLtILqLQfKfQjLyIFZ7QAt6AeP3HKG6OdIxTbhkHQ6pXLH0EQEjELhtXZ AiRVAbAsI2GXY8Lf2gIBisFXoyPg3QFQ9pj2DiLUBbVDMuDsoUSAapFBskAFRmNFXvZHJjL702uqYjLK 1TkNWkXVx0NOJkDkB1GUUxVbN2EVCuGvZzItGhXDDj B8Xos787clSzqwA0XF2IP3IbCTE4ESz0C4enRhVxFLJcWNOqJE5wFdM9GYLgRl5QbOqqFMCoZOHaIi5C lTs1QRG6CDOqDg8+Pj4+Db4uiaBaJxtDCMAvVR3lib43RZ7UfNIxRK4OSKqaG41jYCqdNy75CRfdSFCq RuYoXTq5Ox3gKcKaj7TvH6YxPJf4C7vMTigpU6RjLP htCF3oATC2QZNrPp3+Vh5zBEZwKK19DIQxRSWOZ1VtqjMjmiYjBVa4VUGgTy1+Zq5zvjHlEkbNESXxJT 9hbg79CD1FIM5kePueAxJaWDqkH96koCTzC9awZkNiD2AtuMmsFQWaYW2zS5RgEKgsAEOaEO4qxdIzaX 3WxKx3IZNkPe2IvNA7IIOkP07qQHBrYPGXZDFik9Ow NN0Vr4jwxzXsFXXhQJ3OUTQeE1NOZ7AoT5geyGrmKNTsZT2OZFafvLBxJWx3VR7AlNXdXWLqO20lcF8n FD87JDi+BdJ7nqZrbS5UsPnhe4FDOX342fu6niT0NOAkOzwEJO394iUFNWQHKAoX9d3tyYL9omB6l9QC f4Ht6A2MWh07ud+vmfgPUTxu30pppxx25gmQNjajvi /26jh6EW9eQDMOuxBlnNSxezVzKV2//nqtoxIIUsuZe5OMwHHCarfnfyzPznfAuKyObIUTcWlKJJfAe5 dPQECAnkVUUuSNBDe/wJt/GkF5/gc4Vt5pIP4hpLxYGV/f/C+Ppf0S3WMpYyp1SEPQITduZjfwrpL/gB 4AQMFA+VcB/P2JHSSLIKWH42tebTr/NKjwHBJY5BGO [file] Ángel/U3crq7CYWNUbkt9rtSfj2ljXq902LC1cAmX40cM [file] application coordinator+nX9D9FkK122bGYmvnyCp7HqG6wb/A741uwdebaa [file] gfDOa2CEkJ6hDGndia5KMoyuHgoDuZMclzGPFESN4WrXOAIlQBbPQur8Vr3N/t96tJMFvkQ4upvya+Ángel [file] pgswdaVdEW5IZq0uJ2APGRmtu2jumJ7RE731id9bQ13M05aKTHcG66LVPcWNwFG/0a+EzR7b/jJy3/Bull Wheel Worker [file] A/p6nZFwId86K9q8NuRAPOWVbiF/OPkmFjPnY5 [file] M4DN2yWI6KNSXAh9IGwseJ25g/mjXC5/E2AEosZHQL/ángel/cY33i/ZoOLe8o5ThkoO7rUWMnrvsI2uNDj [file] 0AMh/OhxS5oL0wi6imzyrdFenv0wV/r6MD0enWiC8oy8sM14FuPB4GALyLGGOnO4DDavBbBZHXQFm+SENIOR MOBILE WEB DEVELOPER [file] btI42RhDy2qUmL/zEsgDqz3jZGqdWqBVxSdbXXJBhs+Sv/io+zZ73RGy/Treviño+z6uxDJnRlCPhSyXRjZF [file] j6p3FI9mCruWdz1l5nJGSBjPZImniWQSzV/smPZ9H37k0SpN87Sy7wHyFIGBK2569gpBVlA3ButHU/TAPPER HAND [file] [facility]+oJnTG6KHLVDT0nVx6KE2IF8Wru6g5/c5wd5cG2 [file] Manuel/ [file] 3M7wmOoGdTNPsLK4iT67o80pV/1zSAxvsNO652UgbElK3kwdhObprsPD6Zj3GgUhzMPK3GTRlaGY/plastics factory worker [file] osJ+9LZE/oKxO6lWJOqCT6N/+SENIOR MOBILE WEB DEVELOPER+MQH0JQbPx37FrtGatggbuH6XcLgjgkMbAHwGVpBe7JkBENenWkr6 [file] FX59rxWIMG6NKyx+k/5laU+8a6TlZn+RPnRruvE+credit control manager 1jzbDj5XvE3fjC+7q5bO1HtYPiA0gMCIIQjm77EZslXddYYnWdliM72DOh8f/ElmpRSNlQ3FiyNHSvCN SJ1Tx0IMhGjFQrz2ABU2buhSPGUfkblHbFfWKjcQS1p+2gAnV7PQyVjj4n0iaNbyyedIKMlECIy/o47G NBFqufDDCo9Ak74eHmU+Ht5UPCoy+AMbfgu6mOK4It cl3aCkkmtHWuaCqY1t78oiB+599UMBqulNm2T8CWHoHoBu9Jkg1bGRqlF390+b7+kSmGki1meFE7z4z0 VOmcm8RSNJ8HPRuKn8Ru2Mfc/vpluWg1/p+VjyoCeFTzmALF+sq5EUas7bG5z0CxJuZwZgVRyv47Lu1o 1asZMyM4j0DAXCN/onqAlJOQdzt616e3Ylcn4HioiS 7z/IgVVQWfHAT7Bybz9OARUcUxBNoqXcHVJU6p7exmWEa0C/UtAvxqiITz3iR7Q9NsYN7ZEumWj47QnX BS+/S/LzO1/KAjbsnwt88IyvzWXygknxJq4GtXc7XWOiuYDmJ31UlWOfsK3u1JE3t2hpxU/aa6Aglhz+ TCjfdNhumGTWyXfKjc//zLyovvNmSwphWGkfBnPdkw [file] 85iclPuLSfvwoh06On8yozkraeq3KtrmpQKbfzKfCU FcpWg/LncqTM1Qqo42UptcMjJY09U3UO3Suf5MufbrkO8XroPJ6nnYbiOKfnS77JSdIyASJLMo+sAOeP PIh7BmvmAg1lrwEGHds02L78hhs+ozVX/nNz4Q9TSNnrMVD46W5WdJlJ2u2qOETRNuv7oIb9iFJ48O65 siPjsmilP61gxm86VF3rfZEMqVRMHF51QtWSJxZ0qh j7Gjpm/Ocbsu6FYX/Ele4OJr3CI1KOFdzQkyzlldum9CA/RlcPaSJC6+rrWFAScJf7uG66FHXJ/mMe4N zLdkRb9626coRmDoVL+Kgdc8a+RrflQzbrl7i6IkHRKNCFopiGy06YAmeQhOZe+MLoiisjy3qm6eb/ea vGWGk0zZed1CEMlP9v8OasZfD6Sz6rC/eCzcKYoRRo E/QZ8rSx3zL+PvGO4kHXpqjnGVBIrWTBQoux1cpOV/Kingsley+GV9a92XQN4WjVU1pxIb5R8B8dTJ5IzLzuz yswZ1jf1wrhnkBsN9aVvHRpkdeCz+XKz90wl0K90Wnvy+MQOi+TzHCxObcRsEdvtzJGSMsfnGSFqSEQF ZF9zSx8AoPa0eRlb2y9pqMP2+taurus/screw supervisor/+64YuaLY2J [file] PJ/QP49sijRatNC6ENKI2/2bPteA4dy6VdNfMFxa/corporate vp advertising & online/6ITR+QUBeyV67te7JESAadpo1OpK8w1wf/of [file] rjWn7pPxTiX6hMx7gKV2Kt98UTuXCxu4m6P/JMgWGciT5UO1uTk+CNZQeaxHLOyEBfCf8kOVsPEW+fisher lampara net [file] K7W2gPql3C+Ángel+JnZSPbeSaBlaFl04ZrwNojliznmv [file] +QOB3Xd895LxVg56TSH7ESqQaOS/application coordinator/L7aE7cod1JV [file] screw supervisor/4BfCPZ5jPtSltrXBvV3Fes8uA8acl2EkykIudm7 [file] TBjRTTKRFjBuSIE2ckOpnV1JJK6rq3AkJN7Qb7OagsB0ssStZTgxKVd2RtV5JOfuLASOAa== ID Date Data Source [id number] 05/04/2020 08:09:00 AM [facility] Name Value Range Interpretation Code Description Data Beatriz rce(s) Supporting Document(s) VITAMIN D, 25-HYDROXY 28.3 ng/mL 30.0-100.0 [facility] Vitamin D deficiency has been defined by the [place] of[employer] and an Endocrine Society practice guideline as alevel of serum 25-OH vitamin D less than 20 ng/mL (1,2).The Endocrine Society went on to further define vitamin Dinsufficiency as a level between 21 and 29 ng/mL (2).1. IOM ([place] of [employer]). 2010. Dietary reference intakes for calcium and D. [place]: The National Academies Press.2. Nata MF, Malcolm NC, Sudhir CALVILLO, et al. Evaluation, treatment, and prevention of vitamin D deficiency: an Endocrine Society clinical practice guideline. JCEM. 2010; 96(7):1911- 30.Performed at: - [facility] [place] [id number] Director: Sarita Herndon MD, Phone: [phone] ID Date Data Source [id number] 05/04/2020 10:05:00 AM [facility] Name Value Range Interpretation Code Description Data Beatriz rce(s) Supporting Document(s) FOLATE (FOLIC ACID), SERUM 9.1 ng/mL >3.0 [facility] A serum folate concentration of less kevin n 3.1 ng/mL isconsidered to represent clinical deficiency. ID Date Data Source [id number] 05/04/2020 10:05:00 AM EST [facility] Name Value Range Interpretation Code Description Data Beatriz rce(s) Supporting Document(s) VITAMIN B12 586 pg/mL [facility]1245 [facility] Performed at: RN - [facility] [address] [id number] Director: Sarita Herndon MD, Phone: [phone] ID Date Data Source [id number] 05/04/2020 08:07:00 AM EST [facility] Name Value Range Interpretation Code Description Data Beatriz rce(s) Supporting Document(s) Vitamin D, 25-Hydroxy 28.3 ng/mL 30.0-100.0 Below low normal [facility] Vitamin D deficiency has been defined by the [place] of[employer] and an Endocrine Society practice guideline as alevel of serum 25-OH vitamin D less than 20 ng/mL (1,2).The Endocrine Society went on to further define vitamin Dinsufficiency as a level between 21 and 29 ng/mL (2).1. IOM ([place] of [employer]). 2010. Dietary reference intakes for calcium and D. [place]: The National Academies Press.2. Nata MF, Malcolm NC, Sudhir CALVILLO, et al. Evaluation, treatment, and prevention of vitamin D deficiency: an Endocrine Society clinical practice guideline. JCEM. 2010; 96(7):1911-30. ID Date Data Source [id number] 05/04/2020 10:05:00 AM EST [facility] Name Value Range Interpretation Code Description Data Beatriz rce(s) Supporting Document(s) Folate (Folic Acid), Serum 9.1 ng/mL >3.0 [facility] A serum folate concentration of less kevin n 3.1 ng/mL isconsidered to represent clinical deficiency. ID Date Data Source [id number] 05/04/2020 10:05:00 AM EST [facility] Name Value Range Interpretation Code Description Data [facility] rce(s) Supporting Document(s) Vitamin B12 586 pg/mL [id number] [facility] ID Date Data Source [id number] 05/03/2020 02:08:00 PM [facility] Name Value Range Interpretation Code Description Data Beatriz rce(s) Supporting Document(s) MAGNESIUM 1.8 mg/dL 1.8-2.4 [facility] ID Date Data Source [id number] 05/03/2020 02:08:00 PM [facility] Name Value Range Interpretation Code Description Data [facility] rce(s) Supporting Document(s) GLUCOSE 96 mg/dL 74-106 [facility] BLOOD UREA NITROGEN 11 mg/dL 7-18 [facility] CREATININE 0.74 mg/dL 0.6-1.0 [facility] SODIUM 138 mmol/L 136-145 [facility] POTASSIUM 4.6 mmol/L 3.5-5.1 [facility] CHLORIDE 102 mmol/L 98-107 [facility] CO2 28 mmol/L 21-32 [facility] CALCIUM 9.4 mg/dL 8.5-10.1 [facility] ANION GAP 8.0 mmol/L 5-12 [facility] GLOMERULAR FILTRATION RATE 90 mL/min [facility] GFR IS CALCULATED IN mL/min/1.73m2 DENISE L FUNCTION: >90MILDLY DECREASED: 60-89MILDY TO MODERATELY DECREASED: 45-59 MODERATELY TO SEVERELY DECREASED: 30-44SEVERELY DECREASED: 15-29RENAL FAILURE: <15 AST 22 U/L 15-37 [facility] ALT 30 U/L 12-78 [facility] ALKALINE PHOSPHATASE 54 U/L 46-116 [facility] pital TOTAL BILIRUBIN 0.5 mg/dL 0.2-1.0 [facility] TOTAL PROTEIN 7.8 g/dl 6.4-8.2 [facility] ALBUMIN 4.1 gm/dL 3.4-5.0 [facility] ID Date Data Source [id number] 05/03/2020 01:53:00 PM [facility] Name Value Range Interpretation Code Description Data Beatriz rce(s) Supporting Document(s) FREE T4 1.2 ng/dL 0.76-1.46 [facility] ID Date Data Source [id number] 05/03/2020 01:53:00 PM EST [facility] Name Value Range Interpretation Code Description Data Beatriz rce(s) Supporting Document(s) TSH 1.112 uIU/mL 0.36-3.74 [facility] ID Date Data Source [id number] 02/09/2020 10:00:00 AM EDT [facility] Name Value Range Interpretation Code Description Data Beatriz rce(s) Supporting Document(s) Follow Up [facility] VHTHZu4ePvCJXhSeHITdPfnJFPtkMYczRUPnF9V0BGbwNb2VVAvyveUsTNQjNi3+FJGuLG3upz9aNVRw gMy 1yEZRlTiwjW2RiUPUiy58FNLBjZCmSBkRyNoRaMDP4FgV3EAY2AUH4WlZyAzbeYH1uKKB8LGXqWAmrXO DmZEVqWpOlSDW1RB8qZCcmEOgtTu8SBO9ds6UeXPPtIXWfIgtTJPjdHSwgMTOmPOIsSSKbN470dyFeWX 6CjNMnTQj9KPXkKfQ1RNDnJqF7TFEgDcLfUfZtMZOw G1Qvr830haRcvkB4EY1HT9EdBBG2OKf4O9gnUtDwLBGvOEOoNR7qUiK3IIMjUg3MaNkcCKJaJZYrGr3F mHt9PIB3MSNnGp1+Pj4+Xz4bbxDrKkgVSYToOL4jan26EY9LaERdAN1WZEfxO77gUAokCe98PXfbPFNp AeRqDYf5Cd9oWpApv6XdR3CtPLi8C1rUPzumR3JvXQ hmYR4rAEF1XUKaAa2+Is4jGFZrCV06VXYePNSWX9ErzaIlqjTnXIe1WAJfPd2+Mt0fdnEkUlwXVEGiPY 8xmq94MF9YGV6ulZjyNhL7NSZ9L42giQXvG9fnBzWrA6WqlDqoLMBwUD7qT3RhBSujAHQnHZ5iruDtrH 9FgFr3AGEgTg3MrLQ5IYRvZ49lSEVjPPNFMIRcc4Jv TQ3Tw1ougcCyCACfUL8MTNCmN6ZYP1MvD6jbaSxxQYVgVV9AEEdwjHDzPIt0ER4LbKKuVKMbG51ozC2q GC60EEz+SvB7ufSfkY2BnUrij5TCWM232m1P6+UmGv5BqYqWWLWSLVzcOZTK4S1KxFrLTYIZj0Ptg3hk 7gwafAYd/OS/6274gI5qvqa6ca4ylyx92q5P00rn58 [file] hAFATZLVEp80mCn+Ángel/0Ua90zDIciE0La0RinoYNU6IXBa4cFQFjLZKTDdOYvxmzjLwO7UdYfc8jajom [file] 7MeoF06Y/Ángel+fkmq+XaMEPrB7d1HK4dGjSC2xiYg5BA23SMdrMlcTHiZuPfTrzmXkjRDigXhCFvUPyzv WtlkrNNA6LcUxl3bgZ698AON+WkSnEd/MAIflAA41r+NBX8et4T6ZVjC7FPAYg4ge5+YDVlHluj+c+Yw yHLdqv9776eau1dLNVEdflK5wedVfalD2+zKgPCcdt 2FZhrp6DCly8g5ytlkcCFsxXxr0kc3RidHgbgtAHr3BMlC4EX4WgQZi6ZR+mZfr7niC8kD1fvMFRkQyj NMb228r2OCn17s02XMFotHmnm1mjlJD8AUCyEzeDfkLkpSP0PvJkgdhM02i7uIErMkSfUskWGLg/3sW0 XAigSRVD8InW1IsPMdJt+BmgCA02pnKwarxVwutgFj HF6AKsh8rL4gWGs23u/mfGy50EDMGRIpKds8ZPCDXdT2QEosUvDEpqTrty56ag0nxK/Lp0iZ4tjI0sSG NIgdtT9v/PfvQlUIsB/C844b8xSKDkQ+vo5FLwDtQI267zjTlC3+Mh1v67hJOY23lF+IeJeqLC5Rsb49 +9uhHdWs1Z6/OYyyhZsGQgb/1bIGtNX/T9DJJ/RbXw Dat9p+X4VkOtQQoDA8VlrHa0P72wlBvI4GNctlsna93UosJqit3Q5hKGlAfichp3Ffdz6HTvIv3t1PjJ mfWaz2Hqilo/c9E1NAh9qhYN++BqfNsc9ELFOieUs1YCIpOQPLU5SStt8Uvcf98//Bhumi//MJgJjIQxRh [file] iQ41R30GkYc1ft/ys59JCES9uiNCQ2i+TAPPER HAND/wyFCN3Geixr10w+eTLbK1x1LBLZzbHW7Rzj10qlHk4WLe [file] /v0iRQgQZ0UrWoMIZKLkFGZA0XFs12BtE/2rPw/nj/5ZJq4mWr+3Q2WVjq+gti3zt/licensed practical nurse+IhLr6qx/uV [file] 3+FkH+hqdDsA/j6H3MP+cX5C1H/CwK1UY89NmxPAm9/Sutton/dayxjwWPLJbC8rmpZGFEzQcBExtUvt3DYM Counter Checker/Zuf0zsdJ14BI/vfcrSUtiBytbjm2ar5oLdmtmEk [file] eTVu7ZZxdoiYUuM8y3nacHQ3Mh5c9g9Zh5br0WAlcjpDNMd+1LV7maN8kod2Kp4N92kbhyG0OluYJ+Ángel [file] RYm/ycEdqR1paiIZxB6oMlCylcGnRrzcHO1QC1Nk3B3YlnaAnJBWmeeslcpP9hHw63AiU8CQyw1m/FAMILY RESOURCE SPECIALIST [file] UdI8iEuD+h3gQpW4Vza6xFd0QQqH5ySnLjcE01+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 [file] XxqMftvPWVCrDbtNo2KOKZJci6TxbOhvoElolnBj6DjCnXj9cVnzdvn5W+DYwRbuNYjfx7kMuXLl+pump tester [file] tL8hI+/Scooby+67izfh/44gaoy7fOWanNh5eVqcCEtzF6NRWla39Upt1gqesLOvSndbk+G32sMK4q8iXp 0SECP0VBbqKZ4o7JuTJU9A0fs70MQLvQw+g1ntwOOE +cL77gGHKpOGEGVfAYUpVFu07CzypfoBcznFM0TQWHaMO2s38mcugWmmUv49radSN1lu/tcWSTptAGwU rozuPZQztcNuvXbR5pUCgwElbD7mztj0cgv5PxMQW0l/CjS8liNb3Sndk+BeyMXWEhrjqmTtqEtIla57 GMTO6yr2w5pPfBqKLHm9adtSWdG61hxmLMqbyWIwEk K1Pss/xJeuDXbIKqpIJWuYLOLouUu+YEuZI/h3cnSH4OkiFL/6fQwaPxRCFAT0/h1QFosjN5FTIb/eiK corporate vp advertising & online/Gqn4n7jj0ffEmMvr6li39NJOCexvpVD/RUET7qpCxwDLFDJampf/zB2OU4jOhWd4VNnhG9PCJBn04 [file] Vlv5czTLhH5lkB+aGVFysgCsoj7Aphzq+1jVQ/cHwBUu/KZpk9ipf/VfZ83s4aOE5jDZe72Zaz1en/TAPPER HAND [file] cell tester+LKN849Ldctn74x4iGaMe2DxKcDvGtA/c1Z9/eren [file] GR+3ThT2+MARIA ELENA+wmuucGb2Qf65DlO1ifodfYaXcMs0ujKDTYqJihHfHnJ8p/4AstLi9CpYBXy7UXwlpFI [file] KNr5f4bYYaqFXMNkPit9X9uiWXFQdyKCr//bw/DHWWavM1xXgXOQOVgc968HdizHONwXA/Dawood+9ZryZJ SZoD7yv2jiEz7okiklhaP+2itdearM6FB9/29hJUNePES63R09NujZ1S+x781wG9dBTfc1XSYvpINwW2 2TH987ZaY+JxxlvArnFKrHcoFXYaOULSwSC+7ymXAY fBjvGj+GpSJQsCDDZwjSmVLn3E1QwgJQcF7ia9SJjJ8rx84tnLil71ARB8W/sFKafBSeGloXVS2argBu MRp92x2mrpvkZ5YxO7TfbMyzvr8LGG3yQ6Nd10pEYzhYknF78tSibOXlEdf2wcaXa6JaF1ag9Goshl9D Cq63qreJD5nH1B+Irh9v0L9MOsAHTSTg/w9t4tlhC5 i52efUYJIwAjifz/88DwsqtMp2w542/ko1nXWmzHsapaClb2Fot5SCuIkpCnBoJrNH/0UaZvv1ejcYxA jeW3VrVKalCSDkJa/P9Ed24565e5rgjfIRaMy3/x/zYseo6iwYJITxHM3HROVXmUpEcOOFSw72Na6ckS ms/sj+restaurant crew person/3Ng+ENstybRRtXGDGG0sXE7cs4E1gjwl [file] aMArH83np3d5Ln7gXoZwzAvXmju1DQBI7b2pAgB/SENIOR MOBILE 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 [file] Real Estate Leasing Agent/Dx1g9KbpA/wRJix0hbKLS+oOEUTTtVhHm25N0sHgrDx533NHs0RzWxIgYuwFnhjVcQ8Y8xvwWhjF [file] corporate vp advertising & online+n00oTo0Ety++WdwD/r5belx+TGY4E0LPJhv23evj/GhhitTi9+ByMLAjMWwb/jmfz0g3eutVWRJHM [file] rIYk1mzgB46/VCU5gJwf09VBWQpmq5tDv649/9+PHYSICIAN ASSISTANT PRIMARY CARE [file] U0jFJHBor5z/WKVa/pbWm2LIrG2TYlwCIsfPMbut0sle7TFeSV8+bXSojnPclTtaHc6W76vs5568a+CONDON grfP+LwpdMbygz7vpXNUKC2UeGUFDBZLrLygoZWEBf WdTDZsUfoLB3EgAdUCOBHIGw4C6Jju1ibKZCrZYFCN/f+u3pveZl63w07mx/O+4997x/sOYojr53FKA+ 26ruqZP4Agcexgouk+36DBzdJYtpjPY1xSq1n8ogVJk0so3TNrj7GNdHibAlJ8IpsawRyKMcwPKtN0/6 3RvWnBo74Rk0n5zS2SFeuesk6nDBO+s9ko+DnCiD+n 0/e2LeXH5jqOl7KMqhNEILvBcRkDSdmrzhMJf3bewfrl3ifqRP1YisbAG30ltjYGygC8n0R3Ln5GRKPy zzfqUiNLSDmUlNiktHlCdswSlSuumgGb0sitIVwkp/Hrz0pNgmULgWOxovof3+KeOrrFAvV/HOyJdqKv NbGgxs6uCpqUuQ/VoknsAAUu6KdkA1W/oUXYpN1vyH xGyVYH6dMzfqB6vXX5BKf4kDmk7IS3VoLnD7zuKkq/+02zOEt54rmG++64Og50PGxUvHMUaShSzbS3aP OEIm3lptWemHyHp0/gzSrSYT244AgQVHqR1SIRhkHLd6P0zjZiLkg7Aq9BNG3Oq0bXY2sjL7WK0fH07D /9wEiQEUcLxVZOj0duOVDNKi+hDtN2f7XmpVnpLY0n car spotter/HvrKWt60mpXWKe2Zj8O0CFs5zO7HX2rD3pLjFZWkZNOT7XYL3Gg0WA85v8wJMlmSfOuwfTjJmMtF [file] AnS9xmMQ6Dwagf0P2JnGMathbHNExTArCCC6Zp0+screw supervisor [file] C7Om94B2BNRFu70vKbgyiihZPzcNrmLrCSBPfWi8f/B9FA2b5do7rzO8zcTKDZQUIG5UtNsra90y/Сергей [file] amanda+uC5axCNDolA14m9R0aaNUtr+pkDTXIcXOaL17e 7l78N8fBBfIG3xDCQHBGTBjeV7e+EARvcr1avxaue9iGOo0FHMnQ+Alban+bNtMtkOCs+pQUfArEPAoPDS 0YLgl7Gzf9RSz02K76t1mlO7WKL54sd0doAsFNLxvP7g8coefFhMnxoNXFvD3CxqqruqP5xup+RxI9eH U5oBRjKkomfoUS2rxLazWj+I/9TRWGBEJYVYuQyzW8 kVNybvMUI1FKzK+L5XZyoIRAazo9OcMRHonPek+A4n3NcH7DtF/7PTyTv/GwTfz5stOdTbHp0GwT/MdD WZzy2UcqAJvckkCDbOeIWTHTYr+YXyT7hTZUqX0UbxsJDLhwJN5NzByPQr3gRLSq2kGDI2JDkAcCq0UR huuQSFAWK1KUjJ+CM0/zAPvh4FWIwZZNXTzv7DA/[employer]OPER [file] OLFxOeejf2ot/JPsJPzG10J1qktMv50q5NWNeg+Jose A [file] 2z/CqvDCE2lMWH5cWI0gBiKl5fsYTyhddNrDI9/VICENTE/MOzpd7V0EkefDntwMPesdK9piYuUfiERGC8xR 8P7yl7/1r6Rh61J/GY8mvA7KXN5dw2ZgOHBdUGBuWP6weg2mDPMzKI3mgj62YA1PRG7emSjnCuR+PnN0 hdTqlW5MaGi9ZYYxPRQyFTf2KiPnMKZxS23NO7svEj HkGN4RFK2HJC7xq6PxNMReZYLyWP5btq9aFhYzQG6kwj26BN0JeXh3BEAyJ7HvPPHpQIUan6NiU1omqm u3nVX4FU3PLCFmVBNFJoLVUIEAOui4CgAIRpeFVtKdBBbHOIGUDVG9FhMICsZ0C1IGVKTCSsYUHQn6Kj G6ZNORSSX0BQU6XuYjXZj0EYG+TD8Wm380QJDaVMAW N7qsRs4kGfLxOJBzV9r2XIDsPq4XjPBaGI5FPgTzT4lmIlLaJFHvBK9+v3AyXJHwSUh71mYyLFXLMCHV mjea8cPBzbNJdE7l8x+XYYZOTMCacyVNZPtNgxSs31OAG0VW5+lKELqlKFuaOUT9J4GE0GCKRUh4MudX OcZqMJF7kgXzdD1WEG1le1DvKJ5Fc2VwdyU2xeSlEWbbZWZnNFa3BWkqJUNEAk== ID Date Data Source [id number] 12/18/2019 08:09:00 AM EDT [facility] Name Value Range Interpretation Code Description Data Beatriz rce(s) Supporting Document(s) VITAMIN D, 25-HYDROXY 37.3 ng/mL 30.0-100.0 [facility] Vitamin D deficiency has been defined by the [place] [employer] and an Endocrine Society practice guideline as alevel of serum 25-OH vitamin D less than 20 ng/mL (1,2).The Endocrine Society went on to further define vitamin Dinsufficiency as a level between 21 and 29 ng/mL (2).1. IOM ([place] [employer]). 2010. Dietary reference intakes for calcium and D. [place]: The National Academies Press.2. Nata MF, Malcolm NC, Sudhir CALVILLO, et al. Evaluation, treatment, and prevention of vitamin D deficiency: an Endocrine Society clinical practice guideline. JCEM. 2010; 96(7):1911- 30.Performed at: RN - [facility] [address] [id number] Director: Sarita Herndon MD, Phone: [phone] ID Date Data Source [id number] 12/18/2019 08:06:00 AM EDT [facility] Name Value Range Interpretation Code Description Data Beatriz rce(s) Supporting Document(s) Vitamin D, 25-Hydroxy 37.3 ng/mL 30.0-100.0 [facility] Vitamin D deficiency has been defined by the [place] [employer] and an Endocrine Society practice guideline as alevel of serum 25-OH vitamin D less than 20 ng/mL (1,2).The Endocrine Society went on to further define vitamin Dinsufficiency as a level between 21 and 29 ng/mL (2).1. IOM ([place] [employer]). 2010. Dietary reference intakes for calcium and D. [place]: The National Academies Press.2. Nata MF, Malcolm VERNON, Sudhir CALVILLO, et al. Evaluation, treatment, and prevention of vitamin D deficiency: an Endocrine Society clinical practice guideline. JCEM. 2010; 96(6):1571-30. ID Date Data Source [id number] 12/17/2019 01:56:00 PM EDT [facility] l Name Value Range Interpretation Code Description Data [facility] rce(s) Supporting Document(s) FREE T4 1.12 ng/dL 0.76-1.46 [facility] ID Date Data Source [id number] [facility] Name Value Range Interpretation Code Description Data Beatriz rce(s) Supporting Document(s) TSH 0.29 uIU/mL 0.36-3.74 [facility] ID Date Data Source [id number] 12/17/2019 01:43:00 PM EDT [facility] l Name Value Range Interpretation Code Description Data [facility] rce(s) Supporting Document(s) GLUCOSE 95 mg/dL 74-106 [facility] BLOOD UREA NITROGEN 11 mg/dL 7-18 [facility] CREATININE 0.8 mg/dL 0.6-1.0 [facility] SODIUM 140 mmol/L 136-145 [facility] POTASSIUM 4.4 mmol/L 3.5-5.1 [facility] CHLORIDE 101 mmol/L 98-107 [facility] CO2 29 mmol/L 21-32 [facility] CALCIUM 9.6 mg/dL 8.5-10.1 [facility] ANION GAP 10.0 mmol/L 5-12 [facility] GLOMERULAR FILTRATION RATE 83 mL/min [facility] GFR IS CALCULATED IN mL/min/1.73m2 DENISE L FUNCTION: >90MILDLY DECREASED: 60-89MILDY TO MODERATELY DECREASED: 45-59 MODERATELY TO SEVERELY DECREASED: 30-44SEVERELY DECREASED: 15-29RENAL FAILURE: <15 AST 22 U/L 15-37 [facility] ALT 24 U/L 12-78 [facility] ALKALINE PHOSPHATASE 57 U/L 46-116 [facility] pital TOTAL BILIRUBIN 0.4 mg/dL 0.2-1.0 [facility] TOTAL PROTEIN 8.2 g/dl 6.4-8.2 [facility] ALBUMIN 4.5 gm/dL 3.4-5.0 [facility] Procedure Social History No Information
--- OUTSIDE RECORDS SUMMARY | 2021-01-28 13:50 | CCD ---
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 0-5.0 [facility] BASO % 0.5 % 0.0-2.0 [facility] GRAN # 3.4 K/mm3 2.0-8.00 [facility] IG# 0.0 K/mm3 0.0-0.2 [facility] LYMPH # 2.3 K/mm3 1.0-5.0 [facility] MONO # 0.6 K/mm3 0.10-1.20 [facility] EOS # 0.2 K/mm3 0.0-0.5 [facility] BASO # 0.0 K/mm3 0.0-0.2 [facility] ID Date Data Source [id number] 12/27/2020 10:35:00 AM EDT [facility] Name Value Range Interpretation Code Description Data Beatriz rce(s) Supporting Document(s) FREE T4 1.2 ng/dL 0.76-1.46 [facility] ID Date Data Source [id number] 12/27/2020 10:35:00 AM EDT [facility] Name Value Range Interpretation Code Description Data Beatriz rce(s) Supporting Document(s) TSH 0.099 uIU/mL 0.358-3.74 [facility] ID Date Data Source [id number] 12/27/2020 10:29:00 AM EDT [facility] Name Value Range Interpretation Code Description Data Beatriz rce(s) Supporting Document(s) C REACTIVE PROTEIN 1.0 mg/L 0.0-3.0 [facility] paula ID Date Data Source [id number] 12/27/2020 10:29:00 AM EDT [facility] Name Value Range Interpretation Code Description Data Beatriz rce(s) Supporting Document(s) MAGNESIUM 1.9 mg/dL 1.8-2.4 [facility] ID Date Data Source [id number] 12/27/2020 10:29:00 AM T [facility] Name Value Range Interpretation Code Description Data Beatriz rce(s) Supporting Document(s) GLUCOSE 99 mg/dL 74-106 [facility] BLOOD UREA NITROGEN 12 mg/dL 7-18 [facility] CREATININE 0.72 mg/dL 0.6-1.0 [facility] SODIUM 140 mmol/L 136-145 [facility] POTASSIUM 4.4 mmol/L 3.5-5.1 [facility] CHLORIDE 103 mmol/L 98-107 [facility] CO2 27 mmol/L 21-32 [facility] CALCIUM 9.2 mg/dL 8.5-10.1 [facility] ANION GAP 10.0 mmol/L 5-12 [facility] GLOMERULAR FILTRATION RATE >90 mL/min [facility] GFR IS CALCULATED IN mL/min/1.73m2 DENISE L FUNCTION: >90MILDLY DECREASED: 60-89MILDY TO MODERATELY DECREASED: 45-59 MODERATELY TO SEVERELY DECREASED: 30-44SEVERELY DECREASED: 15-29RENAL FAILURE: <15 AST 19 U/L 15-37 [facility] ALT 34 U/L 12-78 [facility] ALKALINE PHOSPHATASE 61 U/L 46-116 [facility] pital TOTAL BILIRUBIN 0.4 mg/dL 0.2-1.0 [facility] TOTAL PROTEIN 7.5 g/dl 6.4-8.2 [facility] ALBUMIN 4.0 gm/dL 3.4-5.0 [facility] ID Date Data Source [id number] 12/16/2020 09:24:00 AM EDT [facility] Name Value Range Interpretation Code Description Data Beatriz rce(s) Supporting Document(s) SARS coronavirus 2 RNA [Presence] in Res piratory specimen by NOLBERTO with probe detection NEGATIVE [facility] This lab was ordered by [facility] a nd reported by [facility]. ID Date Data Source [id number] 12/14/2020 10:42:00 AM EDT [facility] [address] [place] [address] [phone] NAME SEX PT STATUS ACCOUNT NUMBER DAPHNE ZAMUDIO REG REF [id number] ORDERING PHYSICIAN LOCATION MEDICAL RECORD NO. Florence GROUP BURNER MACHINE Gleasman-Fawn CT [id number] ATTENDING PHYSICIAN DATE OF DATE OF EXAM/TIME Chantelle Bailon 1985 12/[birth year]/201025 TYPE / EXAM Xray UGI [...] FLUOROSCOPY TIME: 1 minute 46 seconds FINDINGS: Mandolin Repairer radiograph of the chest demonstrates no pneumothorax, focal infiltrate or pleural effusion. Heart is normal in size and configuration. Bones are intact. Mandolin Repairer radiograph of the abdomen demonstrates air in [...] rce(s) Supporting Document(s) ID Date Data Source [id number] 12/14/2020 10:03:00 AM EDT [facility] [address] [place] [address] [phone] NAME SEX PT STATUS ACCOUNT NUMBER DAPHNE ZAMUDIO REG REF [id number] ORDERING PHYSICIAN LOCATION MEDICAL RECORD NO. Florence GUERIN Gleasman-Fawn CT [id number] ATTENDING PHYSICIAN DATE OF DATE OF EXAM/TIME [...] rce(s) Supporting Document(s) ID Date Data Source [id number] 11/29/2020 10:15:00 AM EDT [facility] Name Value Range Interpretation Code Description Data Beatriz rce(s) Supporting Document(s) Follow Up [facility] MBBJSn2mTjIIZvWdXBEfTevRVIvjDOypECOeZ8U8WAwdWf1QDFbpsqVyFCRtIt8+WKJeGN1bpg7hJJWc gMy [file] JGX8Z9xFhyONVj++tr0G/ÁNGEL+YmtZ+Ma0iVt8gJdtoY [file] YtUcxgYVcDeVt89cO6xrs3V7MV/6+s1I9zH6UgedzAzW40eXY6tKS+SHz4YUEoe9uhZvmt/GUEST SERVICE TEAM LEADER+g5KZW [file] DH/LaGgUlm6lJhR0q6rib0YVDsp3zAby3QXiC83pp+pQdLlZK4WlNd6iUV+ÁNGEL+Tk1Tr7u/2wBhdkFDUg [file] tdRCPvRALHBIsRoBk6NUplSZJ/vp delivery+is2f5b0hB0OQW [file] 7aYq3z81PEHRmED2E/Word Processing Supervisor+EvTuzM/AGk19HQEoVbJw+7lsiebItKjQ3OOAQZRgqD5v09eeD650QQcB1xy [file] iAhgMS/Na0YUyCslA6oE1ucaTKFCvqCZJKLjmH+Zaire tVvPhDnq05oABFS5j6nuDGBsN9v204Adsn+SFrZaNzBic7VFj2rQdBZqQ5Ibmzk8jZr1oT5DPpHVrXNv RpYV/jwLO0xA8fJjGbZfx9rZtyY/ypGON2399iOkDqR4Py3pkbvXbDtTioC84ugVtcPRpSvxGANoOfEb WGg1PtbK5UJ+jborIf+UnOQXfikLFiK2OWaYveLRB7 cbZi4ZcRrgpSi/N6W79zB3CQEQxgYL3VXae6DHY4TX2CWYjur7oCS4chmIr19TbAu/rV/TXKVaZp2Kh7 NoO9fCyJexW5f6gS1vj1wUHDTciDk8RhYAM/jbKn8zmeH6xUYTyS7l9r7Thy03/ctItjeOEx0q0eb6+H I3zMpI4b5xMccjw2qzsatxv2tZPK3R4V2ljXuMBTJJ k2Sb1z3GrlxyzCKsL09sLOHUNDmNORdNWnQv7EtTFmLc16vUuzw3ZucPBCmtWR6ovgqPwAtXMSSLVhIA Jlj/36LbHnqWEttsdm090HZDgxbdvGj3FcMhs0q3w6sfTYGOuEQKD5onvXbtiRytE54t6IkT05XOHbaL irXhlymWLTQYsXV/28q7+/aXw4u/gEcAofKdMa/hot dip galvanizer 8nWLpJT3XUX+5CfYoBsTeIdas1QKEQmJQe0CfF7xUPvvUtqxUe+IXbCtiT/c/ucYYME4TKWDp/ZHCeoW HRPgIG/qJytzju4pHPTg66VcgkeKEdPqc1TH2vlNcAcjsGo+eyBMpQ3kmM0WVqMjbI5ebc4W3KKa4ITR Z589b8h8+T360G8mcGfbIqB8wSz7UOP2l7FO9EWewv 8B/AV5oXDpE1ef520UAn3VoQg7z7FVshPdYK15cXpt6p5CGNVxoUksYMu+kHGuIxXtKyeoe9ivJmqbo4 J/QPVreW+LPQknYYwfi+ATdJWV4ZM5+f+tPkVKnN/VbXWicFSdZtKURkdXtUePFSz00yfRB2OYbvXgbu NEB19lTDnzLusOCV7YFr93LJeKb+TfbDODhC7lkoTo RfXetdP7KXI8YZk2y32eBE/p4T5k+BELLAMY/mv2mpaYcp2skvPByVev8DsxSTXwFe+lvfM/2MnISdDl4aeq+ [file] XmK3PC6gOSAYwN+J3aqXBLDSFPYNo3OTTXYcpa6iM0 AIP9x951W0FUKj2BUEHINt0E7cSTc1xYtrdTHaewk9G2xjdChSCVDL5b5AXwY82WeAFsgpHEa61XhiHZ xpowNlRPMF+/RvEhEz50bt6CKrb0VEhttEaF1sXVRBMXrJB2Mn+r/Rff15nQmoCdkH81C5BkJ23gvIDR 6ctimRRkbCRvyWURCEUu94pnI3uh6/k7e/Q61Ey7M/ JT7szm2vn8QhTJfppBB1Oh7LaypAhyDZgze5J9xXIg5EMpEXpwJAwclSkbq8XC6paWPy8HaioVFB80+i wlw8K1cDPpLeC88HolaEBz4ChDkikWCnOrYBzrLBA/xsx5/D+pilot safety inspector+q/rc/euY92KFMXMv98yRJhQGQnx5 [file] Sf8K3W/ÁNGEL/U8U77LNKuS2GLSbdwZ4DnUufPxhAb5DY [file] XkOy82sjree26U25+wBraF0xzs9LCapY3WXTbOd/Word Processing Supervisor [file] ImvmDLn/JTc4NfL7rjckZO5SJ7w5BPF0QFv3THnq2+VbDmoePsolDe3vcFvdGHs/kGp8/Toño/+6xkEy9 [file] 9G ID Date Data Source [id number] 09/07/2020 09:30:00 AM EDT [facility] Name Value Range Interpretation Code Description Data Beatriz rce(s) Supporting Document(s) EGD-Colonoscopy [facility] ZQILKi9iHeMGEfPeKGAzXfjFYRmmJNytQESuA0B7GCkjGv0DKLtyvgEeRIEbBa2+WIAoUO5byo8jBBOt gMy [file] pediatric clinical nurse specialist+nYr5JbIpiB+MIjkYvXaLn9+pyERkwC1cziwKWaSka7u9kkdRJF6nPcE/MI7k+/3qVCAJo/Il5Pf0x [file] uc/ce+VOX/ÁNGEL/FsuVphYVqNHGyXQPB8c9louasyP0UpfTkWKYNZzBhQi+f4LErGlU0uHF/J31ey6eoC0 IST6ZVp26sX2HHYsgFpY+dN3FQzEzRiGVZQSTsE3NN rNIUseest/bv/cn2D6E4W9Vqyk9EOegI6ID9+S8H6f074xD0b6WsonNoY4oyNnisEjvfLQdfEa5YboJc b5j2h8io7XTruM9CIDFz327/ZPWmq5e600I9GNpCU7egM02dcPfKhm17LsdXikaV5QfrzN/5oe8j9SWu R3jpDOmGQq4G6vp1QaEk6Go4NwqceRcqzrgGVfLHms TGqgFr8XRH/dyMQ4dNawcypPnKekT6vT0/DnyY5C2/i+u0QBLVZsjP2Lcfhh6z/qnu26DUzwGRmMGGcF aXoLpygLjXhqJv7jCaj/fQFzqI8r6emcs7Cem76WZnJFSI/cFUBFAsJyC7YSSWFlod6jlSzYYT1MUbkU LI+SzNuupl6vTsQChduYUTr9/sxKR//b3KRKkWf1Jz 0RGrOjELK/7Cy9to7gjzWg9NW1Qz+/i5/w7qxdl+h+3cfbh3BLziDddf9G1nvF9YdmGXnJJ0byPPvR2O m0JkHZf6Uv6CsMfl7J52NYosYss0tFoyN2AXGBdGU+CiVDb0C19AAUztcISE0smSSIy8K8T5uxJfbOPY 2kyRwPAzW+1rwzEfmWQsYGFBYCBB/StBjLmDaiV+zu 7tnUXOvAHzLZPZhXQlfdNc80P1iuMk8jStQRG/UjA34uaStNRXKcLcvJqdqCHzWS3qZacxSgupFO6gcV XX7cDN34stDK6Er0SBg+8tb7IGapJvQM5/Condon/0lurkGWxR5YgFDy/hXzLExKHZpB7eYiYXDD4OnqqAJj [file] ÁNGEL+0cpzwIs7aHPUp5d1+JwbpWityvS/S7K7Ge85ebs35q3Bnu4AAaPPjXUTQLNNmk0kswwkxCqgzqeRK [file] 4pVHeEuaRorsilXC/G6/Electric Motor Control Assembler/KXAl1XTrAGsYpRDM+Q2aW4PtXVNPYzZv+AXJOVecsKnf76NwLqq4bScht [file] PJ6AG9TjmIaM23hn+L77N6822b80dB6oiSaR20fXsi enXVnM+f35fdwaTBb6Oean68bzlDRAxhHn2+tUgER4A8o/8Yas60wpeWA6XVQlg7BJ5DAFMUBto3IWBs HDIl1WQd+6zrTuQUY3tbMCqVa998eaw885z1BJicMLTuTv/JAmkfuchtJOkPJrmp8K4/VHVgVKqbLGOv XBedEHpruoWYk2Nb7Vx9tWaax5pvPQbqL7qb2+bLH7 X8M5lYZZNiuaazK/pCXxQL8cjIrN8R56sGuS9Dr4O+3ndPxCC5HyJZmnvH7Ly35Vdh4Wl/vc6fyiQs6C /beBN9CJ6ChJqM6nGp2yOIF+K4ksxTx6WJBNgJnJ8PNlWsPoC4Z8ylAiH5k9PlgW46ujk/X3b/H/gE/y d/uIhp5kBTU2pIPCd1FBuSyRIKt+BmnlSHBwDaifBr /vLiDJGvIFMpSoCOxzGHL6RQHtpf1FSd/1ta2Ic3qam5O9gkVkJ2GnN7oeetqaPXwROS7f2eW11eOATc CNDS11RwP4Z/Yar6DlHmf2TimliLmI5D4J/Word Processing Supervisor+suROuB/X2NDwMq/utg0zoZPhXIXC1HTL33F5V/+n7i PWPjnZe1yvgtHYSXgO6VNXDLlUi7ARygGwvHKrNpQS f722W3NhNkN9iZ/bTo7iT4yvq/DVeIe+M/bjL9/r5TuJdPiDdl5r6vqiIRpzzoruM6jevCtBKSRSBtP+ X+kwlIUvWaH8UGtYSFrozxhoB0dnUUVtU10wjifGiBbb4i58jRiPpuGJB2hQWcdUvZPeD9u8wfz1IPwd tGYqwohjOe/t2bsfDFcpzYwmI29+5O7+nte+TrwAwB exfLH/vTZzPiy37H3IkPmv09AWIfUiIKp6B/ciN4i3S3QuZRQCTFGhweU7AmY2c4q8d3gxT3xRuB4O14 hPEfomzF6BgVhXWk0zm6P398Aw7NvX/vkXOnXa3i6qg0u5I2hvugbmE6GOhBM3750cbr3U9RIPxg6R6N 0HBzFUn2sQc7fIp/0r61ApHDtd6vmL/4b//7G0biyZ 9Q9NgyPwoq1yx8246/Dx98QG3kfuCe/BBFNSW3n5DtimnXPsH31nI5c9cWPIm6/6otkGKU4ziWc55NUA S3F/6M2eM4YV3N+9/99zqwJnnr6F0S66MMPn9lZW8YFQO4H4p+J3p+eGF4M0sg7Ejpv5z/wgjdOQ7cXP +C61Q51VYp8sy5Mor+zrAAf4YEdo/AtJ3iRFynD2Oh KV/I+w/liaEs/yHrv58T+YQ2jba508NLjf60XeqUf5Vgtzle5OXn4JMI82A+e0hSdDHvL6qeDHhBPLis p0LTGnrAt/Gerald/+Uhx4HBonZ/8XyM0CiAibbToGnO7mNBh5KHKbj/Kn9hT+zoNv2F0GG5yif3hGmxt+q [file] 4cWKcWWo/nnYIeVeQcFc3jhjz59Fj6PDgrj3shfMzFz/5s7t/39nhcLx0cMR5WGX29/Dc0Ygk+food service steward/c/ [file] axsCz0ppX3/N+p+medical sales/aUocDe57gPLgNbhRPKlmZEY /yX576iEsbN7ynSVaDZg7pCxJqFBFrZNqSnKKTQ/MAApk2olKi5wEfRWZu54Um0GcvKrQUHfIuIblmy6 VC9YDYBn4m42Zy+b1WN4ZqvH4Nl24+Z8GQ1rjxRs1uOM0V+JzE+D4/ObX0JKrFpPSMAgoqR2h6HcgRHx 0tw005nc/apo3v/XD350FlH0x69E3Lzu2zgW/oZ89F [file] nRUBrLrY+LSsrStRKnpmbLGKqnTP7EPsmowN/u [file] cJRBCCdoZT7DTg9OeUkA/yzt9h/Q67TrU8rYsD/Rafael o5xjqixY3o9elTnXp+HTh0Pft4z1qDa1CqHL44XCdqeT7CI0l2xBrTCM+H1nV4U+Cr9B4U/Automatic Quilling Machine Operator/tUC+T [file] U5MBRlxuKAndST0jiWdSissvs7JoiQbFPdAE5/pilot safety inspector/O [file] WQUkO4mOXlMRuamYnd5RQJ5p08w7HE/G9pb0CsQ51FhBCmbXJPFON/6F5VM9RoAMJybmybaa7AMC/Junior Accounting Clerk [file] chief nurse anesthetist+4zWffakC0AN7xUhHh8a5mfahDizfNc4UNLxIzC [file] NICOLLE+pcujGyQ68NrGJJ6/b7uZ8hCa58otD4omsiSPcvMd1uQbjrtzcwLE476UomvXd7Pvqt+6VUx85Adgx agtK0/6uaL0up0OPgQy3W7/jzAy98HWkR9FEhz6iGiykwF7YG3+v6yIz9J7M27t1aWoPPL2oNEUvjKDU 0+uV6lPDhiP0TtwgbusmK6ZcP4Hl2mrETMYA8+ [file] Ángel/NVAr/p55tMv5zvZS3qJFgd2Whd+IqfMTKhclGtsIxd3/dAkC/KPjsN/+hAvgWoCvWw+Rhvw4ny/df [file] 0TYKqGvcfOy9YSoz+rtS+B93l3FenIViJ4fz3y+/Electric Motor Control Assembler [file] dip galvanizer [file] mnFxhU4QQM5xi1WhCA7Cf8TynvL6apXnAHzcRVByXmU4AOmcRNOYIq== ID Date Data Source [id number] 08/09/2020 10:30:00 AM EDT [facility] Name Value Range Interpretation Code Description Data Beatriz rce(s) Supporting Document(s) Follow Up [facility] ONBQLk8uUcJLPqNdYAUnAqoNVAicHJnvBATuW5E9CQilPq4PVVmvlkWuVEAyFx3+BNQpUK8bga3uALSw gMy 6rNEVzHzqmA7UgRNZam61WKMGlRVcJVtCtNlQaPMB5GPw6HtJ0KKV0BpXwThreHE4kBXL3PEIyYQkvHG BsLOApScR6WKK5Fw4iQRcwHMmsSr6INY6xs2UkLUDiMPSyLcbWCCyhCXydKORyGDRcJAMgX588uwEkXL 4LxVWwMBg7KGLnAjW5SAMmRwF1JMTnJaDoWkLsEYKy B4Myn656chPjolC6TU6YR5FrIOI7LOu7Z0zjMwJoKMYrBKEwXH4mJvS9MHZqIb0JaVsaPOXzFUTsGi1Z fFx3MAQ1NXCwWj4+Pj4+Qx2rowMaDzzSEEGsUF9swg59JF4TcJMsZF8RYYxxD96jXRllNy84WValPZWg QjFxZXd2Ew1qJxCdn0BdR7KsQVp2R2tREuazT5DaZE edZW0kLHH2TTVlUu8+Qf3kRCDvIE28VUIfYUGXR4OaulBfhgVvQDz5LNCwTu2+Nt4jgiAnBlkGIKAeOV 5eel69NV3NNM9lgAmhUwRdITvqP97lkWIeR2niGdXmA2SlwFwfXEBnWG6zG7JwPYmyZKGfGY2vugHmaQ 8PlBq2MNOhFm5NaAJ6VUFnI17rTAAcBCPJNRHlr4Ci DC7Rz8rtoqJqLHUmLN6JCEGrI4FNL6WeT2ikfZhhUMPpQY8GMJpeaERmOMf1LR1RyKGdGTEfP48hqO5s VB62WOu+DjB2qkPmtZ6VyKbrr5QMBP973ez8bsJ5SEHqRzeBOH394hMGZYAKBLoD1j7ecSM9ttC6s6UB o3Hk5S6XCr15oz+qbbwEMDef79kzmkh78tdLOhwxag /96ge5JJ4uNRZKmhFsvYCxihLrLZ6//tungrRRPkzSc7PCvSQNawvasjtZaehNxPnTeNAFrYiFJGlCv1 dPQECAnkVUUuSNBDe/wJt/GkF5/jy1Cd7vCC4gyBeLRP/f/C+Zkj8F1UOcByo5JPFKYWncHuxgsjY/gB 4AQMFA+VcB/D9PJYYBXAAD54svyDv/NUqeEMCQ3CLE [file] Ángel/X5bif0JTSPHoex0xiDki5kpXz744FA6wUpS91dN [file] [place]//C5qCl3kisyJAsTvTp+qi2wyaDRzuLSZf6k8xB [file] pediatric clinical nurse specialist+gY3K6XtD901bLAukmkUz3ZmL1sg/L403xyhqlwr [file] reSVm9QIeR4eZByxot8TToizBwtTdLVuiaIEELQA9BqOLDTaRRgWGzd4Yi5R/i26rTYTtrO0xjplw+Ángel [file] ///3R2hWpl1pwWYwQrl7LYtJxQZwDjij5UZBm9 FW+arrfGw7dELIiMiCejdQ1m1Dg60DCMM8abtz1+qoG/k++iNZSRKyFjaVv6e4iqwERpGHMNqEZ+xxqw vrcZUAZFAlirFbPIxUcbXEMS9j4VJTdG9MTQL/g6bTeh/yrGkSxks/aM+RdGaa+625UR0DbEuF7h1jAb 69GG7+xjqK0Kq3C2xjRbdeKGourNnvx7g/jWK6SYq2 X/+xz7/OOLLebbks5svQcgB/vGevxBa07Jzzn8hQxQV/Aq4XbVKfS6bc+tjL9DpbJRr4quIS9iL3Q3ft HedJJi3iAIghNmCeFSa1aHpKo+L/CdS85JNqhD+pduFjUoYwY4IISoKOi0O23xUEuHNbF+A0sX6U3c// Bztm+FA1Lw9iP3n8SNK4DA82CqE9hhmWXel6/JJ0Vy y52WlQCkgClfYd9bUUNvvTaY7+BNQpvZsSjZV/MB4Ed4BBxrlJ86/b0kpp7lp4Aa6+cilg4nJIkDbbvV O4ZHQOaxLgL3dJAu5KDHSHUVwAMSAyYbCohFUUSWXiQIyHBVpbedt4OZPCfqGWvJ8OjIsIT+dhq721gu Y6wGv18M5yokipcz4qpqkrqAziy4kwuoHj7h8QKx3F [file] whtakzEkQS3TEr4fS2KAINzzm9golI0ZS756dm3cS28K70pRWBgD42XOGhGIrXS/0a+EzR7b/jJy3/Word Processing Supervisor [file] A/m2cLXcGv38A4f8YqWAMFZXavQ/OPkmFjPnY5 [file] K5DE3lLY5JOISCt5YOzkcM40b/mjXC5/A3VHwpWVVB/ángel/cY33i/EfWBb1p8PsiaL1mMDLikpwT1uYUr [file] 0AMh/UpqU6wM7pp0eyqaefOcuo4nM/d7TQ0wsFtR0no9xB79LkMP5TKQoAIXSkK2NMipWpXDOMXUh+HARBOR PILOT [file] qFGz+hCxHR7xVsl6gpyJWp4XzpscEWMg+dIlyD [file] yiS91NvGp3oEbI/pHyjWfv5rPQutUjXKuPlbAYYPaf+Sv/io+lU62ZBb/Treviño+k1jtAWjIrVIeHjWGjSE [file] e9m3IT8sCsbKdn5h5dIWJJeQYMsxbGXMlN/bgCG2F20e5GaT47Pt3hWqYGHMB6974coMVtH0XeaRS/GROUP BURNER MACHINE [file] Manuel/ [file] lift trimmer [file] 4aboSgrjosQJLfYHw20mYQc2Zz4Qinnq++Cl+Electric Motor Control Assembler/2GpN1JZoAz6PH6e+hQ7ekJ41tBw7qeunpK7+wOSW [file] osJ+9LZE/ySoH0tLWUtTY5X/+HARBOR PILOT+QQP2BDtRc28IirMachzjtK9GaRpadpBsHYsDPhJa9LqVVKkjCch9 [file] OQ83yfLRBM9HScj+k/5laU+3s8VbJl+RPnRruvE+pilot safety inspector 7hwxOh2IuD5dqL+0y8wZ1LdTWyP1vTBGVPny25SFyuVcyGJyWlbwE99CJn5y/TfdaDPBcZ5UohBBOwFG QE3Mr6QYjGoQClg1WBU9xslAOUPepedQxUtYFwmEL1a+5bCaA4CJjHvr1k8cmWxhqmgNOYwBHSm/o47G WHOhynOSCi0Hg69wXoR+Jy2HZAue+IEnitm0uJB1Jk kv4sUyrjbMCdkDwE1m82mtB+278RDGvzqUr6P0WEFgFrJm5Lyz0wIZzqW458+b7+pVzWeq1diRS3s0s9 WWhtt2OWHI9WNXwQd2Xw9Tda/vpluWg1/p+VjyoCeFTzmALF+im2MMbv0cC6p7DnPkLpCjGOgx12Gl7s 0xxPMhM4x0WSDDX/ysoLeUODayp215t2Rqny5CrrcE 7z/LdMDTIeTKI7Tgnz7ZIPUvXnLSzpGaCFAU3v0aajJDa6A/OvHdpfcEHq2uS3W4ZkWC3COuwFn25BsG BS+/S/LzO1/DEdwwqtp44QbwvMGdpmezCz2HsXr7XKSfqGSiV04JaMErtD8k6BE8h0jrbZ/mg2Mbrir+ TCjfdNhumGTWyXfKjc//zLyovvNmSwphWGkfBnPdkw [file] 80pgaWmEAqvpff82Xw9dexbfoup1XbjjtKVuteTzDO FcpWg/OrhdSJ6Fss34SrtqRgSX76I6FH0Lmc0DsmrfcA0PkqEV4lsSpyEUqsW85TDyKfNPUEVq+sAOeP VDe2YofzXn0dscVVDva65P46lpm+ozVX/lZd3V2VEVwwOAZ38E4VtRyI7a3cITDLIcv5wIn8kXN90Z21 qfSejlecX62hav80DY8ceWQXxYRLQK12PoWYKkF7xv j7Gjpm/Sznbc1XGF/Qaw0OPm2PX4LLRtdSxjesswom9VQ/RlcPaSJC6+wfOYPXlZs9vF65OJHX/mMe4N xJdyGm2751ptTqHtYV+Kgdc8a+DehtZyfxn2m4BhGLUOMOwtoMg20KPvcHgEYt+SMwaohki4fj6wa/ea pUBCw5nFsl8IENcH4r3BjzQgU7Wk6pW/eCzcKYoRRo E/QY1lJk3gW+SdUW5tURhzbqFLBIpZCRDhjy2osGB/Kingsley+MG9u98GPM0YoAB1ibGe9S1E0rSO0LoUydk dpoR1xg1xwrunLoS8gFoCPcchhPy+DUo73sw1T41Hofa+MQOi+TzHCxObcRsEdvtzJGSMsfnGSFqSEQF IO6eIi4OjIe2wVpq7g5ozRS8+taurus/polisher hand/+59HahQZ0R [file] aoRc7fHgKuZ5lFu7rYN4Gs78JDxXFis3h7V/GIdZHzqZ7PY8yUn+GWQFuumDHQqIRbPd0tBYsHCU+tourist escort [file] G9J8kHyy7D+Ángel+DiFHPxwRuDebGb56SvkJnzodifvg [file] +ZBI8Rf979OsGt05VOR7MSjNxTG/pediatric clinical nurse specialist/K9vH2twa0WH [file] polisher hand/9YnIZU0dXaVebiINeW0Nwo4cX9cxs1YqwlTcip6 [file] GOqCRBGZWkQmOCN3xwSdqG1GFX5gp0LbKF9We0IdjnN2vrQpQSgnFFn0GiE5FOynJSDVGn== ID Date Data Source [id number] 05/04/2020 08:09:00 AM [facility] Name Value Range Interpretation Code Description Data Beatriz rce(s) Supporting Document(s) VITAMIN D, 25-HYDROXY 28.3 ng/mL 30.0-100.0 [facility] Vitamin D deficiency has been defined by the [place] of[place] and an Endocrine Society practice guideline as alevel of serum 25-OH vitamin D less than 20 ng/mL (1,2).The Endocrine Society went on to further define vitamin Dinsufficiency as a level between 21 and 29 ng/mL (2).1. IOM ([place] of [employer]). 2010. Dietary reference intakes for calcium and D. [place]: The National Academies Press.2. Nata MF, Malcolm NC, Sudhir CALVILLO, et al. Evaluation, treatment, and prevention of vitamin D deficiency: an Endocrine Society clinical practice guideline. JCEM. 2011 Oct; 96(7):1911- 30.Performed at: RN - [facility] [id number] [id number] Director: Sarita Herndon MD, Phone: [phone] ID Date Data Source [id number] 05/04/2020 10:05:00 AM EST [facility] Name Value Range Interpretation Code Description Data Beatriz rce(s) Supporting Document(s) FOLATE (FOLIC ACID), SERUM 9.1 ng/mL >3.0 [facility] A serum folate concentration of less kevin n 3.1 ng/mL isconsidered to represent clinical deficiency. ID Date Data Source [id number] 05/04/2020 10:05:00 AM EST [facility] Name Value Range Interpretation Code Description Data Beatriz rce(s) Supporting Document(s) VITAMIN B12 586 pg/mL [phone] [facility] Performed at: RN - [facility] [id number] [place], [place] [id number] Director: Sarita Herndon MD, Phone: [phone] ID Date Data Source [id number] 05/04/2020 08:07:00 AM EST [facility] Name Value Range Interpretation Code Description Data Beatriz rce(s) Supporting Document(s) Vitamin D, 25-Hydroxy 28.3 ng/mL 30.0-100.0 Below low normal [facility] Vitamin D deficiency has been defined by the [place] of[place] and an Endocrine Society practice guideline as alevel of serum 25-OH vitamin D less than 20 ng/mL (1,2).The Endocrine Society went on to further define vitamin Dinsufficiency as a level between 21 and 29 ng/mL (2).1. IOM ([place] of [employer]). 2010. Dietary reference intakes for calcium and D. [place]: The National Academies Press.2. Nata MF, Malcolm NC, Sudhir CALVILLO, et al. Evaluation, treatment, and prevention of vitamin D deficiency: an Endocrine Society clinical practice guideline. JCEM. 2010; 96(7):1911-30. ID Date Data Source [id number] 05/04/2020 10:05:00 AM EST [facility] Name Value Range Interpretation Code Description Data Beatriz rce(s) Supporting Document(s) Folate (Folic Acid), Serum 9.1 ng/mL >3.0 [facility] A serum folate concentration of less kevin n 3.1 ng/mL isconsidered to represent clinical deficiency. ID Date Data Source [id number] 05/04/2020 10:05:00 AM EST [facility] Name Value Range Interpretation Code Description Data Beatriz rce(s) Supporting Document(s) Vitamin B12 586 pg/mL [phone] [facility] ID Date Data Source [id number] 05/03/2020 02:08:00 PM [facility] Name Value Range Interpretation Code Description Data Beatriz e(s) Supporting Document(s) MAGNESIUM 1.8 mg/dL 1.8-2.4 [facility] ID Date Data Source [id number] 05/03/2020 02:08:00 PM [facility] Name Value Range Interpretation Code Description Data [facility] Supporting Document(s) GLUCOSE 96 mg/dL 74-106 [facility] BLOOD UREA NITROGEN 11 mg/dL 7-18 [facility] CREATININE 0.74 mg/dL 0.6-1.0 [facility] SODIUM 138 mmol/L 136-145 [facility] POTASSIUM 4.6 mmol/L 3.5-5.1 [facility] CHLORIDE 102 mmol/L 98-107 [facility] CO2 28 mmol/L 21-32 [facility] CALCIUM 9.4 mg/dL 8.5-10.1 [facility] ANION GAP 8.0 mmol/L 5-12 [facility] GLOMERULAR FILTRATION RATE 90 mL/min [facility] GFR IS CALCULATED IN mL/min/1.73m2 DENISE L FUNCTION: >90MILDLY DECREASED: 60-89MILDY TO MODERATELY DECREASED: 45-59 MODERATELY TO SEVERELY DECREASED: 30-44SEVERELY DECREASED: 15-29RENAL FAILURE: <15 AST 22 U/L 15-37 [facility] ALT 30 U/L 12-78 [facility] ALKALINE PHOSPHATASE 54 U/L 46-116 [facility] TOTAL BILIRUBIN 0.5 mg/dL 0.2-1.0 [facility] TOTAL PROTEIN 7.8 g/dl 6.4-8.2 [facility] ALBUMIN 4.1 gm/dL 3.4-5.0 [facility] ID Date Data Source [id number] 05/03/2020 01:53:00 PM EST [facility] Name Value Range Interpretation Code Description Data Beatriz rce(s) Supporting Document(s) FREE T4 1.2 ng/dL 0.76-1.46 [facility] ID Date Data Source [id number] 05/03/2020 01:53:00 PM EST [facility] Name Value Range Interpretation Code Description Data Beatriz rce(s) Supporting Document(s) TSH 1.112 uIU/mL 0.36-3.74 [facility] ID Date Data Source [id number] 02/09/2020 10:00:00 AM EDT [facility] Name Value Range Interpretation Code Description Data Beatriz rce(s) Supporting Document(s) [facility] JIHGWb5kJfYUEmCnUHVwPkhNLRooKQszGNUaZ0A5XCtgGg8AJWgvoyWxPNWlTq5+VJDvVT7cbb4wNEFg gMy 4cVABkNslhO0ZxIBHpu69HKJFqYCtGMqPfSyBuGDN2RnZ2YXW9ILR2KdFdRvzsHP5vFQS0MPJkCJsiNK GwGIApXgBxCKI6BB4oRCwcGRvpEk9UGL1fe4FuIYQuDKGlVhcDJNtaAFlwOVBtIRHtYJZrG035crJzWX 5IoQJhOQh1YCDgJeU8HNQgGhQ9RPGaTgLvRdEbGZIu J5Esw642mgGfevH8FN1DI3QsAEH3SIx8U4qoVdEdHTLvEHZyBL5yTqZ9SKHoIk2ShYaoZRCwTFIwWj3N vXc1FUV8PGKeXr7+Pj4+Wb2rugQrZbwEVZGfBW2tom17BK6HaTMwZY8LTEpuB15kTSdjIi33ZPsiQHAa NjTaZJp6Wm2dQuBye2NyV1DvDXn3Q8dIVuucH5FbPO cyQH0oVPZ4RLAdSi3+Qi1qNTQpBF02QKMxRJLQM4NoocBjntPtZLi2CWDoTg9+Lm6xxkAvTdyMWQEsHI 5ovj75UZ3QFJ2qhMewMhP2BQP0X61evZCxT6dhBeWlQ2MosBkvZMRaHH0fM3RsFQirDNHrHO2okeFwjG 8NpTc7KFSbYy5ZqSU4AFBgZ69rCNYhXUOPHHDmh0Wn BV7Ho9xjtvJrERKiTL8DBWLxG5AUQ6CcN9peiXweHMPpPP5KLNeccQTmVNz9VJ2YcAAcTQWcD11lmG4i GK53POs+DaJ6fnSxxF3EaOtsd1ZZPC202t6C4+XeJi2DaIhGRLIQNVlsFVKB5W4QwThVZPUTb5Hto1pj 7gwafAYd/OS/7686fO8bauv0eo6rzea77p9V32xo86 [file] aCTYCCFDZt55jCv+Ángel/0Su05oFVroT9Eu2ShpdEML5FBUi6xBPGkNAQMXnVWlpuujQrJ6RjHhh4vorhs [file] 7SrzO87M/Ángel+fkmq+AhKANwW8y9SQ4qGfTV0qxVy6VB09HKzhIstGAwQkNeFoihTfwIAuoQxAJqFPtoj AlyybDLV4KeCcb2lcO617APP+WkSnEd/RRFtbAX38e+NWD6fq3L0SAlT7OZVRr7kc2+YDVlHluj+c+Yw eKRqsb1463laf9jPOZHtjeR1vsuCllwS0+zKgPCcdt 8AIsfk9EEmg6d5bzcxcASviPla9zp7LypKdziyELd9BSoN7FF6EjDVa2RO+cZqu2byI6lE8mrYQMjPae GDr934f7WVi67e34FAIijMgqb1lbeBA9OTQiYwwPssIiqMA3TwTebjiZ37n1wSQbMjZfXmmXACr/3sW0 RMitKONT3TuB9ZdICrLl+UrzHC33txCcncsUhuhoLs AT5RRru8aY3fLXa11q/usRd71MTSJASbKlw7UVTIVwD3OVgiLgGKgtZggv70os7moS/Va4hF8ncB2fSW ICuzeZ2c/PfvQlUIsB/H338h1hQLJeB+ui3MWsVqRY645ulKdS0+Te1a00xNTA21eZ+UlAbrIS9Rzr30 +4klSsPv1C2/OYyyhZsGQgb/1bIGtNX/T9DJJ/RbXw Dat9p+E0PiToCNmVM3XxaFl4H30dcCyH0ZJzjeiit18PyoCeot3M5bPRyLkugdz9Qsln3NXuDu5u8BrQ xuCce1Eeiio/m8O3HQa2jiRK++ZzsBik2YDNVkaCb4XEPiIAFSG7ZAjs1Awhb94//Bhumi//MJgJjIQxRh [file] uF04S79LnTo3jz/pn13FYGU7xlYVC0i+GROUP BURNER MACHINE/kaZIL5Hbhhd67n+zNFlL6i2EIDHqiQH0Ecl68zfMt6KJw [file] /f0fVYxJU3MkHdAKBQBaGIPY2NNg44EnJ/2rPw/nj/6RGk6pNp+4E9IXdg+gti3zt/stave saw operator+YfYc9ym/uV [file] 3+FkH+hqdDsA/j6H3MP+cX5C1H/FsR2DB85UkaRBo7/Sutton/jxqajlWBKGmE1nhmLRYKaPrIAnlMgx2IFB Electric Motor Control Assembler/Aem1pygZ94XU/ljgxEIxkNokhww9vd0hNsdzmDp [file] zFYv3BQkbfbTQgE7r4lbpYE0Vl4n0s2Jb8xw2MCjvboDCBh+8DV3aiF4nmh2Nt3N45qlpmQ3KwmUP+Ángel [file] C948xBRtgBbcLk3Ecj+2RgtoYANaFuKTYMzlwdbkECkif6/2IGwgMDctKPIIBgSDqLjpXobdc52hm/Sutton TCaaLleCdKtKIhul3A1IkawkjmBapINT4AaqPZUZ1C AzVyrlJ7B9xX7Wi55vanPJo6wSbP4OO0aW0NbMjf9ovwMurxzDygQedHB1he18UoSYTvmOThrm2tUBms 02NWJ4UNjlR4LFuLQg1l8EOqV6a3W506FqhmDkpRJ6XhbHguqf60ibV8KtlOUu71Xl4znojGDHxG4rss AiuEUT4nZvNGexYuf8K5SUorIktp2vVcecWRHqwhh/ zYYEervgLrbvg78hOSCZEm6zb6SXkZwAwgiDJ3LgWCauKuRSX8cS2iDMBKcUgG73tzqroHgt552X2iwv MfX2y3FbLcrZ9DQtB6BAL3/sBi2ZL1kww9NsKy3s/SEOypVc5dIeUbhC0iuUUJ8nrIk87hDPaJv4szCe r6LCHo6efOkC1FJnBjSPftPRbPVrUaB0b++V9ndR/0 2z5FVvya+Amador/uO3BWL4WKHscBHtXQZ31wic+GqVG6AJz/fPW1EChgqPWSbLhN989zNhKYvi+y2sHzSP JOhrmC+heapCmXMsiMOJ8/r4QQ6iYEkkI5GN5vL8g42Nw1HSqlTa56HBQHoFFjeUUyGtbxBgsE+putty maker+M [file] RYm/syLfxG9nygXHoP2qFzYtamXcKgtsKQ7ZL6Hm1W9WdsrQqAAYrmnqamwK9aFv25AoL8CLnf2v/CASINO INVESTIGATOR [file] NkO1wUpU+j7dPrR3Smc6gDp5USwM7eXnNriT83+reconciling clerk [file] VbiEdkaOSDHeOauBa7AUAGWzw5HhcFrucNqsfuDg4GdHgPq0dZkxttp5Q+SEqJajOPitp5rGmLIv+computer support specialist instructor [file] +GPUOUXkfO45RVNpqxLOxPZT3w1nJp224xDl+gFVwfv11/polisher hand+ySmo9kc4u3rsxqpe4ovf9wu2m6C1BE3 [file] tL8hI+/Scooby+67izfh/46kyqs5tPZwrBb8wRfwOUehR8GGWbh39Wzg0qfpfFLePyojh+I08fJE6c6iOg 0XHBX2UUnkOE7s1BcTIH4D8pe21MEPwVj+j2jhwVTP +wG90kIGMjVZJQHpXGOhTIe79EamfygTndwJF5CTQPmML5q56ztcaPqhOh19qjwXB2pk/tcWSTptAGwU ymtoKJDmtgVmqPxB3pKYlgRapD4bimz6vkb8IoCIR4v/ZbF1nxCc1Twul+McqTXGGrzltdZkuCtWrt60 JUCA1iv1k3hUqAoKIDf4jggLKzE60kjmMWlvkVFnGa K1Pss/xJeuDXbIKqpIJWuYLOLouUu+YEuZI/f8thER8RmpXW/8bEkkLjJIZZU1/a0GRkocR7OOHr/eiK vp delivery/Tvt3o0kb1inWaQwz6ef19LTKFmlijXZ/TSQJ7pxMdvAOVKWeris/dR8JW9dYyNx1TYtxA7KFZDd08 [file] Wzo0btWInO9waX+xFGTmicNfsu5Tkdee+1jVQ/cHwBUu/WZuc4eay/ZfQ29b5fHM5rIVx40Fmu0vl/GROUP BURNER MACHINE [file] bottle house quality control technician+HHI663Gampj45q0uXsKh5HiGxCoQcA/c1Z9/eren [file] GR+3ThT2+MARIA ELENA+jpitjZs9Df01EeU9hhxbdNfUaXo9rtZXKIyJrwWpWyP4s/9JyxFw2YwCIUe6MGgqeQX [file] KSp3f5sFJqmORLMdYfm6H0eyHILEfqUOp//bw/BRQLbzU5cNuTDDHLzx665BvtqALFuDI/Dawood+9ZryZJ QDyF8dy1ycDa9qkwbyzgZ+4xcitvlY6HK5/71tMFChSTE25O46XhqM5K+b502xU8tZZwn1GLTjpSYkR3 3ZS013XoQ+JxxlvArnFKrHcoFXYaOULSwSC+7ymXAY fBjvGj+FsFGVbVSKPonPoRKc6G5AahDAoJ0kr7EItA9zc77ejOgm07ZSL3B/sFOgcMHtUnzVUM5dpqHr EWg85m2qirrvL0UiN6JktIobly6DOW3aB8Ao81pFDpvSuiE31cBcyPWvVbb3ludZh2PoS2kz9Lsdxk3N Mw62olkDL8zL8C+Lfq1k2B0TEdGJIIDv/h9v8udgG1 l24wdGKDDzSncgo/20UqlqpTj3g862/pk0rWVnpTiwetXwj9Iyu3MNpXrdNbXcEyTS/4NbLsa5znpSjR tjA6UnJXtuYXBoEm/A4Hr35433s0rdmcLQbKv8/x/wMwil5scPLONaUB8UWGHWvGlVoPIRKx11Lf4asJ ms/sj+behavioral health tech/3Ng+WKfgifCFmJUTYD8gYD0zb4S6vlui [file] iVBaC93hp5h3Rp2uJsAefYuDgoh3FSIF3k0uSvA/HARBOR PILOT [file] Asset Protection Assistant/Mp7o3QrwK/hOLon7psUWU+vJOFYOfHtWx11X0uRuvNa122NTs6AzZkTwYwwOjqyVmI7I6yqvXgiJ [file] vp delivery+q68hAa9Bcw++WdwD/r5belx+AUB2I2VWGjg21gbv/GhhitTi9+ByMLAjMWwb/cnts8e0lspEYPBTM [file] fXEk2sjnD32/XHJ8mBoc86GIGPdki6bHt801/9+TECHNICIAN TERMINAL AND REPEATER [file] N9dHWUNuj6r/WKVa/uhJh9XVrL7LOotFVslNJxsg1fba8NAaMY0+wJIgqySynKfxNo6B19nl3408t+CONDON grfP+EzvuWhvzg2nkXAERU9QeANPGYLZvPabhUFROt DeJOHnStxDK2CxCoHABKRETo2G8Icg0acSWCsSEOWR/f+b2iaoDz49z15et/O+4997x/oTErre77WNC+ 88wtpBG1Fbylbompl+19IZqrKFgbiPY6gCn1n8zdOQw2sf7PRar0NObLgtHcA2JrmelKnTYylBKgU1/6 9WfBqGt20Df8w0tC7CTrmwpd0kYLN+s9ko+DnCiD+n 0/x1GmDU9kpNe0DVosMQDHbMmOvUTfmfsmIJm5gfpawn1xnaTC5HrelCJ80wkoQShpX6m6K2Vg8DTJIn ppdjEmEQNJoSvPvhyNwYskzTpKdfvnTn9frbCDmxt/Ert4dXpxKAmJAdejjm6+KeOrrFAvV/HOyJdqKv ZwBjkc2yKqrTzY/ItwipPFCj4IxxH8K/sCBXhF5xwK hMzYOL1iTiysK1uXW0NCp5zVrk8EK7NuLkR8qaXwn/+37hZGt51fdE++85Gk03OCnEzOFWqBrDpwP8lM VKVt5aoeYuqOpMq2/ldFkGCI862RiIBFtX8APKzxJXq9N8iiDiVpv4Wd7BQU9Kl9pGV1glP1OS6jA28V /1sNtXPCtYkPGSo1rkQVKVLn+hXrV1f5PyvAurKB2a pesticide control inspector/VjwAVv92uxIAKb1Ig4G4SFq1eL9GO7tP8dJgZNTkFOCV0CMC1Pt6SZ37n6lZTdcKbIzpaMoVtPxX [file] OvA7rvRR7Dqteq2M4AvFEecqmBYFbYXdKVB1Js4+polisher hand [file] U3Og80E1ZZUEl26jLgoexitMVczMzzBoWAZGyId5m/V9VZ4t7bt2ejZ1trIZGBIEVK4PpUdpo34l/Сергей [file] amanda+qK3uxRZDqmY75x9F3ppSItw+pbCWFBnEFyT29m 1b52K0jQUnUR0mGFIDYOERqcD0j+DAKqjq3goxgbu1sMXa3PLQwK+Alban+bNtMtkOCs+pQUfArEPAoPDS 3FXfz5Wwb3BQz76W36v5psD6MNB39dk1byOjEWLhyL4i8ztaaYmDpjhDBSbO5VqgretiP5vbc+RxI9eH A8cQJgRmfwszZV2urBmmGp+I/1XLMHSMLPRHoFxyL3 gWKqqzUDL3UEyF+K3WJskMKLvdw2KqTCFgsGhq+E5w0IeD1FpF/7PTyTv/YwTii3zhArApWx1DxT/MdD JLgh1YeqVQirnaLKiHrUEWFCEj+OCwL9gZGHqQ0DrgaXTNbpXG7BpAmLPp2fMRAf4qUSZ6NAsWnQk4HV vqtPZVUIC8RCfF+CM0/sAXeh7MFLzGSSTGyt4UB/HARBOR PILOT [file] CKPjZvrjm6nx/STqPZoU04R7qjiRs62m8UKQyd+Jose A [file] 2z/HpvBPB6pUUF0wOP1sWvCq6kaJTyqtyLiAR1/VICENTE/ZTvpk8O2EclyDjjmAKqzaS4baNkDjeSKHG4gF 8P7yl7/0z2Yo50D/VK1vkE2UCH6fg6MzYCKoMSFtIH9uaf1iGNQxQN0sea29OW9KQT9tgMbfXmU+PnN0 wsMwgW1QeGr0JEWfIDEoKXf1ZaAtQFQyG27QA0etZf EgMC4OEF9MBD5ed9JgCHBlSBKjXH6rxj0mKxLpLE3lgh79SL4BeUx9ANDdW4UlJORxEEGnk3TjO7muhl p4oUR5BM2HONEcKUGUCmEPHDIVEec8DdFZBdoVPrVkZEpOENIPKQA8ZrZJTtN8A8XFYBEVXvHADEx8Nd H2CJFQLUK3ABP1KpGcZGv4IYX+QL3Vc535CIVfFTHR L9xhAy0qNcJqEUQwE8x0IJTwTd6GnIKwTR9TCeAaJ1tcMdCvSCHeKU3+k3VuGXWfHQw62xJeINPALQZR glij0sBPkiIWuH9z9y+IVQRMSQRedxDZIJvOetBp93OML0TN1+pIGBwuCXwiOEZ6T4RE2LMAEFl9UviA FjKzPTW0btKkwT2BYN8au1WoIA3Ly9NddnD1ctQuEBpzJJHwUNz6ROguNLBEFy== ID Date Data Source [id number] 12/18/2019 08:09:00 AM EDT [facility] Name Value Range Interpretation Code Description Data Beatriz rce(s) Supporting Document(s) VITAMIN D, 25-HYDROXY 37.3 ng/mL 30.0-100.0 [facility] Vitamin D deficiency has been defined by the [place] of[employer] and an Endocrine Society practice guideline as alevel of serum 25-OH vitamin D less than 20 ng/mL (1,2).The Endocrine Society went on to further define vitamin Dinsufficiency as a level between 21 and 29 ng/mL (2).1. IOM ([place] of [employer]). 2010. Dietary reference intakes for calcium and D. [place]: The National Academies Press.2. Nata MF, Malcolm NC, Sudhir CALVILLO, et al. Evaluation, treatment, and prevention of vitamin D deficiency: an Endocrine Society clinical practice guideline. JCEM. 2010; 96(7):1911- 30.Performed at: RN - [facility] [address] [id number] Director: Sarita Herndon MD, Phone: [phone] ID Date Data Source [id number] 12/18/2019 08:06:00 AM EDT [facility] Name Value Range Interpretation Code Description Data Beatriz rce(s) Supporting Document(s) Vitamin D, 25-Hydroxy 37.3 ng/mL 30.0-100.0 [facility] Vitamin D deficiency has been defined by the [place] of[place] and an Endocrine Society practice guideline as alevel of serum 25-OH vitamin D less than 20 ng/mL (1,2).The Endocrine Society went on to further define vitamin Dinsufficiency as a level between 21 and 29 ng/mL (2).1. IOM ([place] of [employer]). 2010. Dietary reference intakes for calcium and D. [place]: The National Academies Press.2. Nata MF, Malcolm VERNON, Sudhir CALVILLO, et al. Evaluation, treatment, and prevention of vitamin D deficiency: an Endocrine Society clinical practice guideline. JCEM. 2010; 96(0):7431-30. ID Date Data Source [id number] 12/17/2019 01:56:00 PM EDT [facility] l Name Value Range Interpretation Code Description Data Beatriz rce(s) Supporting Document(s) FREE T4 1.12 ng/dL 0.76-1.46 [facility] ID Date Data Source [id number] 12/17/2019 01:56:00 PM EDT [facility] l Name Value Range Interpretation Code Description Data Beatriz rce(s) Supporting Document(s) TSH 0.29 uIU/mL 0.36-3.74 [facility] ID Date Data Source [id number] 12/17/2019 01:43:00 PM T [facility] l Name Value Range Interpretation Code Description Data Beatriz rce(s) Supporting Document(s) GLUCOSE 95 mg/dL 74-106 [facility] BLOOD UREA NITROGEN 11 mg/dL 7-18 [facility] CREATININE 0.8 mg/dL 0.6-1.0 [facility] SODIUM 140 mmol/L 136-145 [facility] POTASSIUM 4.4 mmol/L 3.5-5.1 [facility] CHLORIDE 101 mmol/L 98-107 [facility] CO2 29 mmol/L 21-32 [facility] CALCIUM 9.6 mg/dL 8.5-10.1 [facility] ANION GAP 10.0 mmol/L 5-12 [facility] GLOMERULAR FILTRATION RATE 83 mL/min [facility] GFR IS CALCULATED IN mL/min/1.73m2 DENISE L FUNCTION: >90MILDLY DECREASED: 60-89MILDY TO MODERATELY DECREASED: 45-59 MODERATELY TO SEVERELY DECREASED: 30-44SEVERELY DECREASED: 15-29RENAL FAILURE: <15 AST 22 U/L 15-37 [facility] ALT 24 U/L 12-78 [facility] ALKALINE PHOSPHATASE 57 U/L 46-116 [facility]in TOTAL BILIRUBIN 0.4 mg/dL 0.2-1.0 [facility] TOTAL PROTEIN 8.2 g/dl 6.4-8.2 [facility] ALBUMIN 4.5 gm/dL 3.4-5.0 [facility] Procedure Social History No Information
[2021-01-28] MEDS ORDERED: ONDA4TAB6 PO (16:44)
== END 2021-01-28 13:50 | disposition home or self-care (01) ==
LOC: M ED 13:09
DX: U07.1 COVID-19 (principal); E03.9 Hypothyroidism, unspecified; K52.9 Noninfective gastroenteritis and colitis, unspecified; K58.0 Irritable bowel syndrome with diarrhea; K22.4 Dyskinesia of esophagus; Z79.899 Other long term (current) drug therapy

== ENCOUNTER → 2023-04-09 | Outpatient (REF) ==
[~2023-04-09] MED LIST changes: +ONDA4TAB6 PO
== END ==
LOC: M EMP 07:48
PROVIDERS: ATTEND Family Medicine
DX: Z11.52 Encounter for screening for COVID-19 (principal)

== ENCOUNTER → 2024-01-16 | Outpatient (CLI) | payer BC ==
[~2024-01-16] MED LIST changes: +ONDA-282 PO; -ONDA4TAB6 PO
== END ==
LOC: M RAD 12:30
PROVIDERS: ATTEND Physician Assistant Medical
DX: M79.674 Pain in right toe(s) (principal)

== ENCOUNTER → 2024-04-09 | Outpatient (CLI) | payer BC | LOC: M LAB 13:32 | PROVIDERS: ATTEND Registered Nurse | DX: Z11.1 Encounter for screening for respiratory tuberculosis (principal) ==